=== PATIENT | male | born 1945 | race Caucasian/White ===

== ENCOUNTER 2017-12-24 14:19 | Emergency (ER) | payer MEDICARE, SELFPAY ==
[2017-12-24 14:20] VITALS: BP 129/68; PULSE 59; RESP 17; TEMP 36.8; O2SAT 93; BMI 25.8
--- NOTE | 2017-12-24 14:41 | CT_ITS ---
STUDY: CT BRAIN WITHOUT CONTRAST REASON FOR EXAM: Male, 72 years old. Syncope RADIATION DOSAGE (If Supplied By Facility): CTDIvol = ( 44.99 ) mGy, DLP = ( 829.85 ) mGycm TECHNIQUE: Transaxial CT imaging of the brain was performed without administration of intravenous contrast material. Individualized dose optimization techniques were used for this CT. COMPARISON: January 04, 2015 FINDINGS: Normal soft tissue structures. Normal calvarium. Normal size ventricles and extra-axial spaces for the patient's age. Stable white matter microangiopathic ischemic changes of the cerebral hemispheres. Normal basal ganglia and thalami. Normal brainstem. Normal cerebellum. There is no intracranial hemorrhage. 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 Right maxillary and sphenoid sinus mucosal thickening. CT/Brain/Head without Contrast IMPRESSION: Age-related and chronic changes of the brain. Electronically Signed: Chip Alonzo DO at 15:34 EDT Tel [phone], Service support ,
--- NOTE | 2017-12-24 14:41 | RAD_ITS ---
STUDY: X-RAY CHEST REASON FOR EXAM: Male, 72 years old. Syncopal episode TECHNIQUE: Frontal views COMPARISON: None. FINDINGS: The lungs are clear and expanded. There is no demonstrated pleural abnormality. Normal size heart. Normal mediastinum and philomena. Normal visualized pulmonary arteries. Normal visualized aortic arch and descending thoracic aorta. Degenerative changes of the thoracic spine. Normal visualized ribs, clavicles, and shoulders. There is no demonstrated abnormality of the visualized soft tissue structures of the upper abdomen. RAD/Chest 1 View (Portable) IMPRESSION: No acute pulmonary pathology of the chest. Electronically Signed: Chip Alonzo DO at 15:07 EDT Tel [phone], Service support ,
--- NOTE | 2017-12-24 14:41 | EKG12_ITS ---
Test Reason : SYNCOPE Blood Pressure : / mmHG Vent. Rate : 058 BPM Atrial Rate : 058 BPM P-R Int : 182 ms QRS Dur : 110 ms QT Int : 438 ms P-R-T Axes : 056 -59 048 degrees QTc Int : 429 ms Sinus bradycardia Left axis deviation Incomplete left bundle branch block Abnormal ECG Confirmed by CHARLETTE ALARCON, SANDRA ([id number]), assignment desk editor NENITA COLE ([id number]) on 12/29/2017 3:41:22 PM Referred By: MOR Confirmed By:SANDRA OVALLES MD
[2017-12-24] MEDS: 0.9% Normal Saline 1,000 ML 150 ML IV (14:44)
[2017-12-24 15:04] LABS: Absolute Lymphocyte Count 1.95 X10^3/ul (0.83-4.51); Absolute Neutrophil Count 6.4 X10^3/uL (2.0-7.7); Basophil# 0.02 X10^3/uL; Basophil% 0.2 % (0-1); Eosinophil# 0.11 X10^3/uL; Eosinophils% 1.2 % (0-5); Hematocrit 43.2 % (40-54); Hemoglobin 14.8 g/dl (13.0-16.5); Lymphocyte # 1.95 X10^3/ul (4.0); Lymphocyte % 20.9 % (19-41); Mean Corp Hgb Conc 34.3 g/gl (32-36); Mean Corpuscular Hgb 30.1 pg (27.0-32.0); Mean Corpuscular Volume 87.8 fL (80-94); Mean Platelet Vol. 10.2 fl (6.2-12.0); Monocyte% 8.6 % (0-10); Neutrophil # 6.42 X10^3/uL (2.7-7.7); Neutrophil % 68.8 % (47-70); POSITIVE COUNT NO; POSITIVE DIFFERENTIAL NO; POSITIVE MORPHOLOGY NO; Platelet Count 181 K/mm3 (150-450); RBC Distribution Width CV 13.9 % (11.6-14.6); Red Blood Count 4.92 M/mm3 (4.6-6.2); White Blood Count 9.3 K/mm3 (4.4-11.0)
[2017-12-24 15:20] LABS: Anion Gap 8 (5-15); BUN 13 mg/dL (7-18); BUN/Creat Ratio 14.8 RATIO (10-20); Calcium,Total 8.5 mg/dL (8.5-10.1); Chloride 109 mmol/L (98-107); Creatinine, Serum 0.88 mg/dL (0.70-1.30); EST Glomerular Filtration Rate 91 mL/min (>60); Est Glom Filt Rate - Afr Amer 110 mL/min (>60); Estimated Creatinine Clearance 82.06 ml/min; Glucose 101 mg/dL (74-106); Potassium 4.2 mmol/L (3.5-5.1); Sodium Level 145 mmol/L (136-145)
[2017-12-24 15:54] VITALS: BP 122/74; BP 123/72; BP 131/76; PULSE 59; PULSE 62; PULSE 70
--- NOTE | 2017-12-24 16:07 | ED.VISSUMM ---
- ER Visit Summary Date of Service: 12/24/17 Chief Complaint: [Syncope] History of Present Illness: The patient is a 72 M [presents the emergency department with complaint of syncopal episode prior to arrival emergency department. Patient states that he had finished cutting his grass and then he had some customers come by the purchase some dumbbells from him. He had gone down to the basement and remembers feeling dizzy and sweaty. Patient then had a syncopal episode however he was caught by the customer that was with him and laid on the ground therefore there was no injury from fall. Patient's symptoms lasted about a minute. No seizure activity was noted. Patient states that he had a syncopal episode about a year and a half ago but did not seek medical attention at that time. Patient states that he subsequently had a loop recorder placed after that syncopal episode. Patient has had episodes of dizziness for years and no etiology has been found for it. Patient denies recent illness. He denies chest pain. He denies shortness of breath. He denies recent travel or surgery.] Physical Examination: [HEENT-PERRLA, EOMI. Cranial nerves II through XII grossly intact. TMs clear. Mucous membranes moist. No adenopathy. Cardiovascular-regular rate and rhythm without murmur or ectopy Lungs-clear to auscultation, chest wall stable without crepitus or subcu emphysema Abdomen-normoactive bowel sounds, soft, nontender, no rebound or rigidity, no peritoneal signs. Neuro exam-figure the nose and heel to rojo testing within normal limits, negative Romberg, negative pronator drift, fundi benign Extremities-intact ?4, normal range of motion, normal pulses, atraumatic] Test Results: [EKG obtained showed a sinus rhythm with a ventricular rate of 58 bpm with an incomplete left bundle branch block. CBC with differential obtained was unremarkable. Chemistries unremarkable. Troponin was less than 0.015. CT scan of the brain without contrast showed nothing acute. Orthostatic vital signs were negative.] Emergency Department Course and Treatment: [] Treatment Plan: [I recommended admission for further workup and evaluation of his syncope. At this point it is unclear the etiology of syncope. Patient is refusing admission. Patient understands I cannot rule out a cardiac dysrhythmia or other cardiac etiology. Patient understands this and again is refusing admission. Patient would like to sign out AGAINST MEDICAL ADVICE. Patient's is with him as well and she understands my concerns as well. Patient understands he may return to the emergency department at any time with recurrent or worsening symptoms.] Disposition: [Signed out AGAINST MEDICAL ADVICE] Impression: Syncope-etiology uncertain] This note was generated with [employer] dictation software. It may contain incorrect words, spelling, and punctuation that were not noted in review of the chart prior to signing ED Disposition - Plan for ED Patient: Chief Complaint: Syncope [facility] [[facility] Provider] -
--- NOTE | 2017-12-24 16:14 | ED.DEP ---
ED Disposition - Plan for ED Patient: Chief Complaint: Syncope Instructions: ED Fainting Unkn Cause [facility]errals: [facility] [Primary Care Provider] - 3-5 Days
[2017-12-24 16:38] VITALS: BP 124/68; PULSE 71; RESP 18; O2SAT 97
== END 2017-12-24 16:40 | disposition left against medical advice (07) ==
LOC: ED 16:29
PROVIDERS: Emergency Provider Emergency Medicine
DX: R55 Syncope and collapse (principal); I44.7 Left bundle-branch block, unspecified; J44.9 Chronic obstructive pulmonary disease, unspecified; I10 Essential (primary) hypertension; G47.30 Sleep apnea, unspecified; K21.9 Gastro-esophageal reflux disease without esophagitis; Z79.82 Long term (current) use of aspirin; Z79.899 Other long term (current) drug therapy; Z95.5 Presence of coronary angioplasty implant and graft
CPT/HCPCS: 70450; 71045; 80048; 84484; 85025; 93005; 99285

== ENCOUNTER 2018-12-05 14:53 | Emergency (ER) | payer MEDICARE, SELFPAY ==
[2018-12-05 14:55] VITALS: BP 104/77; PULSE 77; RESP 18; TEMP 36.7; O2SAT 93; BMI 25.2
--- NOTE | 2018-12-05 15:06 | RAD_ITS ---
STUDY: X-RAY CHEST REASON FOR EXAM: Male, 73 years old. Shortness of breath and cough for over a week TECHNIQUE: PA and lateral views of the chest. COMPARISON: 12/24/2017 FINDINGS: EKG leads project over the chest. Reticular opacity and bronchiectasis of the right middle lobe is the most prior study, although best seen on lateral imaging. Localized hyperlucency in the right costophrenic angle is stable and may represent emphysematous bleb. There is no demonstrated pleural abnormality. Normal size heart. Normal mediastinum and philomena. Normal visualized pulmonary arteries. Normal visualized aortic arch and descending thoracic aorta. No acute bony process. There is no demonstrated abnormality of the visualized soft tissue structures of the upper abdomen. RAD/Chest PA and Lateral IMPRESSION: 1. No airspace consolidation or pleural effusion. 2. Emphysematous hyperinflation or bleb of the right costophrenic angle, stable. 3. Bronchiectasis and peribronchial fibrosis of the right middle lobe, stable. Electronically Signed: Oneal Martinez MD at 16:00 EDT , Service support ,
--- NOTE | 2018-12-05 15:09 | ED.VISSUMM ---
- ER Visit Summary Date of Service: 12/05/18 Chief Complaint: Short of breath and cough History of Present Illness: The patient is a 73 M with history of COPD and obstructive sleep apnea. He wears oxygen as needed at home. He has had cough and congestion for the past 7 to 10 days. He occasionally brings up hazy mucus. He had chills one night but no evidence of fever. He now has chest pain only with cough. [facility] Physical Examination: Vital signs unremarkable. Pulse ox is 93% on room air. Patient lying in bed no acute distress. He speaking full sentences. Head and neck examination is unremarkable. Heart is regular rate and rhythm. Lung sounds with mild rales at the right base. He has mild decreased air movement throughout. Abdomen is soft nontender. Test Results: EKG is sinus at 70 with no acute ischemia. Two-view chest x-ray shows no airspace consolidation. Emphysematous hyperinflation or bleb is noted to the right costophrenic angle. Fibrosis is noted in the right middle lobe. Emergency Department Course and Treatment: Patient was given a DuoNeb treatment here along with prednisone. On repeat evaluation he does feel improved. He will be given prescription for prednisone at home as well as Zithromax. Treatment Plan: [] Disposition: Discharge Impression: COPD exacerbation This note was generated with [employer] dictation software. It may contain incorrect words, spelling, and punctuation that were not noted in review of the chart prior to signing ED Disposition - Plan for ED Patient: Disposition: Home or Assisted Living Instructions: ED COPD Flare Prescriptions: Azithromycin [Zithromax] 250 mg PO DAILY #4 tablet Prednisone [Deltasone] 40 mg PO DAILY #10 tablet [facility]errals[facility] [Primary Care Provider] - 1-2 Weeks
[2018-12-05] MEDS: predniSONE 20 MG Tablet 40 MG PO (15:10)
--- NOTE | 2018-12-05 15:16 | EKG12_ITS ---
Test Reason : CP WHEN COUGHING Blood Pressure : / mmHG Vent. Rate : 070 BPM Atrial Rate : 070 BPM P-R Int : 176 ms QRS Dur : 106 ms QT Int : 404 ms P-R-T Axes : 048 -60 048 degrees QTc Int : 436 ms Normal sinus rhythm Left axis deviation Inferior infarct , age undetermined Abnormal ECG Confirmed by CHARLETTE ALARCNO, SANDRA ([id number]), research editor ADELAIDE PARKS ([id number]) on 12/08/2018 9:30:41 AM Referred By: JUSTINO Confirmed By:SANDRA OVALLES MD
[2018-12-05 15:19] VITALS: PULSE 72; RESP 18
[2018-12-05] MEDS: Ipratropium/Albuterol Sulfate 3 ML AMPUL.NEB INHALATION (15:19)
[2018-12-05 16:16] VITALS: PULSE 75; RESP 19; O2SAT 92
[2018-12-05] MEDS: Azithromycin 250 MG Tablet 500 MG PO (16:17)
--- NOTE | 2018-12-05 16:21 | ED.RN ---
RESP THERAPY TO EDUCATE ON CLEANING CPAP MACHINE. PT AND REQUESTING.
== END 2018-12-05 16:22 | disposition home or self-care (01) ==
PROVIDERS: Emergency Provider Emergency Medicine
DX: J44.1 Chronic obstructive pulmonary disease with (acute) exacerbation (principal); G47.33 Obstructive sleep apnea (adult) (pediatric); J84.10 Pulmonary fibrosis, unspecified; I25.2 Old myocardial infarction; I10 Essential (primary) hypertension; Z87.891 Personal history of nicotine dependence; Z95.5 Presence of coronary angioplasty implant and graft; Z79.82 Long term (current) use of aspirin; Z79.899 Other long term (current) drug therapy
CPT/HCPCS: 71046; 93005; 94640; 99283

== ENCOUNTER 2019-03-05 11:13 | Observation (INO) | payer MEDICARE, SELFPAY ==
[2019-03-05] VITALS (8 sets, daily range): BP systolic 139–159; BP diastolic 76–79; PULSE 58–71; RESP 16–19; TEMP 36.1–36.9; O2SAT 93–99; BMI 25.9; BMI 25.0
--- NOTE | 2019-03-05 11:33 | EKG12_ITS ---
Test Reason : Blood Pressure : / mmHG Vent. Rate : 057 BPM Atrial Rate : 057 BPM P-R Int : 204 ms QRS Dur : 112 ms QT Int : 434 ms P-R-T Axes : 055 -57 051 degrees QTc Int : 422 ms Sinus bradycardia Left anterior fascicular block Cannot rule out Inferior infarct (masked by fascicular block?), age undetermined Abnormal ECG Confirmed by CARMINE ALARCON, KADY ([id number]), reimbursement counselor NENITA COLE ([id number]) on 03/09/2019 11:59:11 AM Referred By: Bartolome Hernandez Confirmed By:DUSTIN LOU MD
--- NOTE | 2019-03-05 11:33 | CT_ITS ---
STUDY: CT BRAIN WITHOUT CONTRAST REASON FOR EXAM: Male, 73 years old. Right-handed weakness. Hypertension. RADIATION DOSAGE (If Supplied By Facility): CTDIvol = ( 44.99 ) mGy, DLP = ( 829.85 ) mGycm TECHNIQUE: Transaxial CT imaging of the brain was performed without administration of intravenous contrast material. Individualized dose optimization techniques were used for this CT. COMPARISON: Comparison is made with prior study dated December 24, 2017. FINDINGS: Normal soft tissue structures. Normal calvarium. There is mild cerebral atrophy with widening of the extra-axial spaces and ventricular dilatation. There are areas of decreased attenuation within the white matter tracts of the supratentorial brain, consistent with microvascular disease changes. Focal encephalomalacia in the posterior inferior aspect of the right occipital lobe. This is new as compared to prior study and represents subacute infarct. Normal basal ganglia and thalami. Normal brainstem. Normal cerebellum. There is no intracranial hemorrhage. There are no findings of an acute ischemic infarction. Atherosclerotic calcification of the vertebral arteries and cavernous portions of the internal carotid arteries bilaterally. Opacification of the right sphenoid sinus. CT/Brain/Head without Contrast IMPRESSION: Chronic involutional changes of the brain. Electronically Signed: Angel Charles, at 13:39 EDT , Service support ,
[2019-03-05 11:52] LABS: Absolute Lymphocyte Count 2.26 X10^3/uL (0.83-4.51); Absolute Neutrophil Count 4.4 X10^3/uL (2.0-7.7); Basophil# 0.05 X10^3/uL; Basophil% 0.7 % (0-1); Eosinophil# 0.15 X10^3/uL; Hematocrit 44.6 % (40-54); Hemoglobin 15.2 g/dL (13.0-16.5); Lymphocyte # 2.26 X10^3/ul (4.0); Lymphocyte % 29.4 % (19-41); Mean Corp Hgb Conc 34.1 g/dL (32-36); Mean Corpuscular Hgb 30.2 pg (27.0-32.0); Mean Corpuscular Volume 88.5 fL (80-94); Mean Platelet Vol. 9.9 fl (6.2-12.0); Monocyte% 10.4 % (0-10); NRBC Flagged by Analyzer 0 % (0-5); Neutrophil % 57.2 % (47-70); Platelet Count 177 K/mm3 (150-450); RBC Distribution Width CV 13.6 % (11.6-14.6); RBC Distribution Width SD 43.9 fl (35.1-43.9); Red Blood Count 5.04 M/mm3 (4.6-6.2); White Blood Count 7.7 K/mm3 (4.4-11.0)
[2019-03-05 12:18] LABS: Anion Gap 4 (5-15); BUN 8 mg/dL (7-18); BUN/Creat Ratio 10.6 RATIO (10-20); Calcium,Total 9.1 mg/dL (8.5-10.1); Chloride 109 mmol/L (98-107); Creatinine, Serum 0.76 mg/dL (0.70-1.30); EST Glomerular Filtration Rate 107 mL/min (>60); Est Glom Filt Rate - Afr Amer 130 mL/min (>60); Estimated Creatinine Clearance 71.13 ml/min; Glucose 95 mg/dL (74-106); Potassium 3.9 mmol/L (3.5-5.1); Sodium Level 139 mmol/L (136-145)
[2019-03-05 12:19] LABS: Partial Thromboplast Time 29.4 Seconds (24.1-36.2)
--- NOTE | 2019-03-05 12:48 | ED.DCSUM_ITS ---
History of Present Illness Informant: Patient, Significant Other Onset: Today - Started at midnight last night Context: Gradual Onset Timing: Continuous Quality and Location: Right Arm Weakness - Right hand weakness, which she describes as difficulty with fine motor functioning Onset: Gradual Current Severity: Severe Maximum Severity: Severe Worsened by: Use of right hand Relieved by: Nothing Associated Symptoms: Negative for: Headache, Nausea, Vomiting, Chest Pain Narrative: 73-year-old male history of coronary artery disease, he was admitted with TIA, presents with nearly 12 hours of difficulty using his right hand which she describes as difficulty with fine motor functioning. He is not having weakness, he is not dropping anything however he just feels clumsy with his right hand. He feels like he is not able to use his coffee mug normally, he was able to drink however he was still able to adjust felt more difficult than normal. He is not having any pain. He has no numbness or tingling. He does not have any other symptoms of weakness, he denies to have any other paresthesias, or numbness, he does not have any headache or neck pain or visual changes or difficulty with speech or ambulation. He is not on blood thinners. He denies chest pain or shortness of breath. No back pain. Rest of review of systems negative. Prior similar symptoms: No Recent Illness/Hospitalization: No <Teddy Watson - Last Filed: 03/05/19 16:07> <Blade Archer - Last Filed: 03/06/19 07:01> Chief Complaint: Numb/Ting Past Medical History Prior records reviewed: Yes Past Medical History: - Smoking Status: Former smoker <Teddy Watson - Last Filed: 03/05/19 16:07> - Family History Maternal Family History: Reports: - - Denies known maternal medical history including cardiac history. Paternal Family History: Reports: - - Denies known paternal medical history including cardiac history. <Blade Archer - Last Filed: 03/06/19 07:01> - Allergies and Home Meds Allergies/Adverse Reactions: Allergies No Known Allergies Allergy (Verified 12/05/18 14:57) Review of Systems All systems negative except as indicated Neurological: Reports: Weakness <Teddy Watson - Last Filed: 03/05/19 16:07> STROKE Vital Signs/Narrative: Vital Signs Temp Pulse Resp BP Pulse Ox 03/05/19 11:13 96.9 F L 62 19 H 159/79 H 99 Inital Vital Signs reviewed: Yes General: Well nourished, Well developed Head: Normocephalic, Atraumatic Eyes: Perrl, EOMI ENT: Moist mucous membranes Neck: Supple, Nontender Cardiovascular: Regular rate, Regular rhythm, No murmurs Respiratory: No distress, CTA bilaterally, Chest nontender Abdomen: Soft, Nontender, Nondistended, Normal bowel sounds, No masses Back: Nontender, Normal Inspection Extremities: Nontender, No edema Skin: Normal color, No rash Neurological: Alert, Oriented x3, Cranial nerves II-XII grossly intact, Normal Strength, Normal Sensation, Normal Gait Psychological: Normal affect <Teddy Watson - Last Filed: 03/05/19 16:07> Diagnostic/Tx/Re-eval CT brain was unremarkable for acute findings - Rhythm Strip Rhythm Strip: Sinus Rhythm Ectopy: None - EKG Initial EKG Interpretation: Sinus Rhythm, No Acute Injury Pattern - Medical Decision Making Stroke Team Activated: No EKG was unremarkable. NIH stroke scale was 0. CT brain unremarkable as were laboratory work-up. Patient is having abnormal movements weakness and difficulty with coordination of his right hand. Concern for neurological cause. Does not appear to be a peripheral nerve issue. He does not have any weakness or numbness within his single nerve distribution. At this time we will admit f or stroke work-up. I spoke with the hospitalist who agreed to admit <Teddy Watson - Last Filed: 03/05/19 16:07> - Medical Decision Making Saw the patient independent from the physician assistant grocery store manager. He had sudden and transient weakness and incoordination of his right hand. At one point, he walked into the wall, but because he did not feel it was part of his body. He had recurrent symptoms this morning. He has a history of TIA. His NIH is 0. Exam unremarkable except for some bruising to his hand. Stroke work-up was unremarkable. I am concerned for lacunar infarct, internal capsule infarct or TIA. Hospitalist was contacted to admit for further evaluation. <Blade Archer - Last Filed: 03/06/19 07:01> ED Disposition <Teddy Watson - Last Filed: 03/05/19 16:07> <Blade Archer - Last Filed: 03/06/19 07:01> - Plan for ED Patient: Disposition: Acute Care Hospital [facility] Diagnosis: Right hand weakness
--- NOTE | 2019-03-05 16:28 | HP.PCM_ITS ---
<Becki English - Last Filed: 03/05/19 17:22> Problem List (1) HTN (hypertension) Status: Chronic (2) COPD (chronic obstructive pulmonary disease) Status: Chronic (3) HLD (hyperlipidemia) Status: Chronic (4) GERD (gastroesophageal reflux disease) Status: Chronic (5) Right hand weakness Status: Acute History of Present Illness Date of Admission: 03/05/19 Chief Complaint: Right hand weakness. The patient is a 73 year old M who presents emergency room due to right hand weakness. Patient reports at 12:15 AM he went to let out his dog and when he picked up a dog treats he dropped it and his hand felt weak. He then states he went to bed and woke up this morning and had difficulty holding brush while brushing his hair. He reports he has normal strength of his right hand. Denies hand or wrist pain. Denies numbness, tingling. Denies other neurologic symptoms or focal deficits. He denies history of carpal tunnel syndrome, injury or other orthopedic issues. He has a past medical history of CAD with history of stents, hypertension, hyperlipidemia, COPD, GERD, former tobacco use. Past Medical History Past Medical History (Chronic Problems): Chronic Problems HTN (hypertension) (Chronic) COPD (chronic obstructive pulmonary disease) (Chronic) HLD (hyperlipidemia) (Chronic) GERD (gastroesophageal reflux disease) (Chronic) Allergies No Known Allergies Allergy (Verified 12/05/18 14:57) Home Medications: Ambulatory Orders Medication Instructions Recorded Albuterol Inhaler [Ventolin Hfa] 2 puff INHALATION Q4H PRN PRN 12/24/17 Amlodipine Besylate [Norvasc] 5 mg PO DAILY 12/24/17 Budesonide/Formoterol 160/4.5 2 puff IH BID 12/24/17 [Symbicort 160/4.5 Mcg Inhaler (SP)] Carvedilol [Coreg] 37.5 mg PO BID 12/24/17 Fish Oil/Dha/Epa [Fish Oil 1,200 1,200 mg PO DAILY 12/24/17 mg Fish Oil] Fluticasone 0.05% [Flonase Nasal 2 spray NASAL PRN PRN 12/24/17 [place]] Guaifenesin [Chest Congestion 400 mg PO Q4H PRN PRN 12/24/17 Relief] Lisinopril [Zestril] 10 mg PO DAILY 12/24/17 Multivit-Min/FA/Lycopen/Lutein 1 each PO DAILY 12/24/17 [Abc Plus Tablet] Tiotropium [place] [Spiriva 18 MCG] 2 puff INHALATION DAILY 12/24/17 Rosuvastatin Calcium 20 mg PO DAILY 12/05/18 Albuterol Aerosols [Ventolin 2.5 mg INHALATION Q6HWA.RT 03/05/19 Aerosols] Alendronate Sodium [Fosamax] 70 mg PO VILLANUEVA 03/05/19 Aspirin E.C. [Ecotrin] 81 mg PO DAILY@0800 03/05/19 Cholecalciferol (Vitamin D3) 2,000 unit PO DAILY 03/05/19 [D3-2000] Cyanocobalamin (Vitamin B-12) 1,000 mcg PO DAILY 03/05/19 [B-12] Loratadine 10 mg PO QHS 03/05/19 Omeprazole 20 mg PO DAILY 03/05/19 Clopidogrel Bisulfate [Plavix] 75 mg PO DAILY #30 tab 03/06/19 Surgical History: - - Cardiac stents, hernia repair x3 Psychiatric History: No pertinent psych hx Lives: Spouse/ Significant Other Smoking Status: Former smoker Tobacco Use: Cigarettes Alcohol: None Drugs: None - *Family History Maternal History Items: - - Denies known maternal medical history including cardiac history. Paternal History Items: - - Denies known paternal medical history including cardiac history. Review of Systems Constitutional: Denies: Chills, Fever, Weight Change HEENT: Denies: Head Aches, Sinus Congestion, Sinus Drainage Cardiovascular: Denies: Chest Pain, Palpitations Respiratory: Denies: Cough, Shortness of breath at rest, Sputum production Gastrointestinal: Denies: Abdominal Pain, Nausea, Vomiting Genitourinary: Denies: Dysuria Musculoskeletal: Denies: Joint Pain, Joint Tenderness Skin: Denies: Rash, Wounds Neurological: Reports: - - Right hand clumsiness.. Denies: Double vision, Slurred speech, Confusion, Focal weakness, Numbness, Tingling Psychiatric: Denies: Anxiety, Depression, Homicidal Ideations, Suicidal Ideations Hematologic/ Lymphatic: Denies: Easy Bruising, Easy Bleeding VTE Information - Inpt Only VTE Present on Admission: No VTE Mechan Device Prophylaxis: None VTE Pharm Prophylaxis ordered?: Yes - Physical Exam General: Alert, Oriented x3, Cooperative HEENT: Atraumatic, PERRLA, EOMI, Normocephalic Neck: Supple, No JVD, Negative Carotid Bruits Lungs: Clear to auscultation, Normal air movement Cardiovascular: Regular rate, Regular Rhythm, Normal S1, Normal S2, No murmurs Abdomen: Bowel Sounds Present, Soft, Non Tender, Non-Distended Extremities: No clubbing, No cyanosis, No edema, Capillary Refill Less than 3 Seconds Skin: No rashes, No breakdown Musculoskeletal: No Tenderness to Palpation of Joints or Extremities Neurological: Cranial nerves II-XII grossly intact, Neuro grossly intact Psych/Mental Status: Normal Affect, Appropriate Vital Signs Temp Pulse Resp BP Pulse Ox 96.9 F L 62 19 H 159/79 H 99 03/05/19 11:13 03/05/19 11:13 03/05/19 11:13 03/05/19 11:13 03/05/19 11:13 Weight: 191 lb 2.252 oz Body Mass Index (BMI) 25.9 Laboratory Tests Past 24 Hrs 03/05/19 03/05/19 03/05/19 11:45 11:45 11:45 WBC 7.7 RBC 5.04 Hgb 15.2 Hct 44.6 MCV 88.5 MCH 30.2 MCHC 34.1 RDW Std Deviation 43.9 RDW Coeff of Min 13.6 Plt Count 177 MPV 9.9 Immature Gran % (Auto) 0.300 Neut % (Auto) 57.2 Lymph % (Auto) 29.4 [place] % (Auto) 10.4 H Eos % (Auto) 2.0 Baso % (Auto) 0.7 Absolute Neuts (auto) 4.4 Absolute Lymphs (auto) 2.26 Nucleated RBC % 0 PT 13.0 INR 1.0 APTT 29.4 Sodium 139 Potassium 3.9 Chloride 109 H Carbon Dioxide 26.0 Anion Gap 4 L BUN 8 Creatinine 0.76 Estim Creat Clear Calc 71.13 Est GFR (MDRD) Af Amer 130 Est GFR (MDRD) Non-Af 107 BUN/Creatinine Ratio 10.6 Glucose 95 Calcium 9.1 Troponin I 0.024 Assessment/Plan All Active Problems Right hand weakness (Acute) 1. Right hand weakness, rule out CVA- possible carpal tunnel or other Ortho etiology/nerve impingement. Obtain MRI of brain, cervical spine MRI. Further neuro evaluation pending MRI of brain. PT/OT/ST. Aspirin, statin. Lipid panel in a.m. 2. CAD with history of stents-continue aspirin, statin, beta-juan david. 3. Hypertension-hold BP regimen pending MRI. Patient on amlodipine, carvedilol, lisinopril. 4. Hyperlipidemia- continue statin. FLP in a.m. 5. COPD- no exacerbation, continue home aerosol regimen. 6. GERD- Continue PPI. DVT prophylaxis-Lovenox sc This patient was seen by BIANCA Gupta under the supervision of Dr. Hernandez. <Bartolome Hernandez - Last Filed: 03/06/19 21:00> History of Present Illness The patient is a 73 year old M with previous history of TIA although patient does not remember but was told by PCP came to ER with right hand weakness. As per the patient, his right hand felt like clumsy not able to write or do fine motor work or make a good fist. He denies any numbness or tingling. Denies other neurological symptoms. No chest pain, shortness of breath or arrhythmia.] Past Medical History Allergies No Known Allergies Allergy (Verified 12/05/18 14:57) - Physical Exam General: Alert, Oriented x3, Cooperative HEENT: Atraumatic, PERRLA, EOMI, Normocephalic Neck: Supple, No JVD, Negative Carotid Bruits Lungs: Clear to auscultation, Normal air movement, No rhonchi, No wheeze, No rales Cardiovascular: Regular rate, Regular Rhythm, Normal S1, Normal S2, No murmurs Abdomen: Bowel Sounds Present, Soft, Non Tender, Non-Distended Extremities: No edema, Capillary Refill Less than 3 Seconds Skin: No rashes, No breakdown Musculoskeletal: No Tenderness to Palpation of Joints or Extremities, Arthritic Changes, - - Tinel sign positive palpation of right median nerve. Phalen's sign negative Neurological: Cranial nerves II-XII grossly intact, Deep Tendon Reflexes 2+/4 and Symmetrical, Neuro grossly intact, Motor Exam 5/5 strength throughout, Sensory exam intact to light touch and pain, - - Sensation on both side of hand is equal. Psych/Mental Status: Normal Affect, Appropriate Vital Signs Temp Pulse Resp BP Pulse Ox 98.0 F 62 12 137/71 H 93 09/14/19 09:15 03/06/19 09:15 03/06/19 09:15 03/06/19 09:15 03/06/19 09:15 Oxygen Flow Rate (L/min) 1 Oxygen Delivery Method Room Air Weight: 184 lb 8.43 oz Body Mass Index (BMI) 25.0 Intake and Output for Last 24 Hours 03/04/19 03/05/19 03/06/19 23:59 23:59 23:59 Intake Total 1100 / 1100 1360 / 1360 Balance 1100 / 1100 1360 / 1360 Laboratory Tests Past 24 Hrs 03/06/19 06:45 Triglycerides 190 Cholesterol 118 LDL Cholesterol 41 VLDL Cholesterol 38 HDL Cholesterol 39 L Assessment/Plan This patient was seen in conjunction with INTERIOR DESIGNERBecki. I have independently interviewed and examined the patient and reviewed pertinent history, examination findings, laboratory and plan of management. I have reviewed the note and agree with the documented findings with the few additional points. In brief, patient is admitted for right hand clumsy action and unable to do fine motor work. There is suspicion of carpal tunnel syndrome but patient was admitted for MRI brain to rule out a stroke. Cervical spine MRI also ordered. If MRI brain is positive we will do further stroke work-up. Started on aspirin and statin. Fasting profile exam. Rest of his comorbidities including coronary artery disease status post stents, hypertension and dyslipidemia, COPD and coronary stable. I have discussed my assessment with Becki VITALE and orders have been reviewed. Code Visit OBSV E&M: 90428 Initial observation care L2
--- NOTE | 2019-03-05 16:28 | MRI_ITS ---
We are attempting to reach an attending provider to discuss findings. An addendum with communication details will be sent when the communication is complete. STUDY: MRI BRAIN WITHOUT CONTRAST REASON FOR EXAM: Male, 73 years old. Right hand clumsiness since midnight last night. History of prior stroke. TECHNIQUE: Standardized multiplanar fat and water weighted pulse sequences were obtained. COMPARISON: CT head 03/05/2019. FINDINGS: There is a small area of restricted diffusion in the left posterior frontal lobe consistent with an acute infarct. Chronic right frontal and right occipital infarcts. No intracranial mass, mass effect, or midline shift. No hemorrhage. There is mild cerebral atrophy with widening of the extra-axial spaces and ventricular dilatation. There are multiple white matter hyperintensities, distributed throughout the deep white matter tracts of the cerebral hemispheres, consistent with moderate chronic white matter ischemic changes. There is no extra-axial fluid accumulation. Normal flow voids within the major intracranial circulation suggesting patency by spin echo criteria. Normal sella turcica, pituitary gland, infundibular stalk, optic chiasm and hypothalamus. Normal basal cisterns. Normal bilateral temporal bones. Mucosal thickening in the right sphenoid sinus. Normal calvarium and skull base. Normal visualized soft tissue structures. MRI/Brain without Contrast IMPRESSION: 1. Small acute left posterior frontal infarct. 2. Chronic right frontal and right occipital infarcts. 3. Moderately extensive microvascular ischemic changes. 4. Mild chronic sinusitis. Electronically Signed: Francoise Delgado MD at 20:12 EDT Tel , Service support ,
--- NOTE | 2019-03-05 16:40 | MRI_ITS ---
STUDY: MRI CERVICAL SPINE WITHOUT CONTRAST REASON FOR EXAM: Male, 73 years old. Right hand discoordination since midnight. TECHNIQUE: Standardized fat and water weighted pulse sequences were obtained in the sagittal and axial planes. COMPARISON: None FINDINGS: Normal foramen magnum and brainstem-cervical cord junction. Normal craniovertebral junction. Normal anterior atlantoaxial articulation. Normal odontoid process. Normal cervical lordosis. Normal vertebral bodies and posterior osseous elements. C2-3: Normal endplates. Normal disc height, signal and morphology. Normal central canal. Moderate to severe left foraminal stenosis due to uncinate hypertrophy. C3-4: Normal endplates. Normal disc height, signal and morphology. Normal central canal. Moderate to severe foraminal stenosis, greater on the left, due to uncinate and left facet hypertrophy. C4-5: Mild disc space narrowing. Left facet fusion. Moderate left foraminal stenosis due to uncinate and facet hypertrophy. C5-6: Marked disc space narrowing. 3 mm retrolisthesis. Mild spondylotic bar with minimal cord flattening and borderline canal stenosis. Severe bilateral foraminal stenosis due to uncinate hypertrophy. C6-7: Normal endplates. Normal disc space height, signal, and morphology. Normal central canal. Moderate foraminal stenosis due to facet hypertrophy. C7-T1: Normal endplates. Normal disc height, signal and morphology. 2 mm anterolisthesis. Normal central canal and intervertebral neural foramina. Normal cervical cord. Normal visualized soft tissue structures. MRI/Spine Cervical (Routine) IMPRESSION: 1. C5-6 retrolisthesis, mild cord flattening and borderline canal stenosis. 2. Moderate to severe foraminal stenosis from C2-3 through C6-7. Electronically Signed: Francoise Delgado MD at 20:22 EDT Tel , Service support ,
[2019-03-05 17:49] LABS: Thyroid Stim Hormone (TSH) 2.45 uIU/mL (0.358-3.74)
[2019-03-05] MEDS: Albuterol 2.5 MG/3 ML VIAL.NEB. INHALATION (20:02)
--- NOTE | 2019-03-05 20:39 | CT_ITS ---
STUDY: CTA HEAD AND NECK WITH CONTRAST REASON FOR EXAM: Male, 73 years old. Acute CVA. Left posterior frontal infarct. RADIATION DOSAGE (If Supplied By Facility): CTDIvol = ( 26.49 ) mGy, DLP = ( 806.89 ) mGycm TECHNIQUE: CT angiography was performed with a multi-detector CT scanner. Data acquisition was obtained from the skull base through the vertex following intravenous administration of 100ML IV Isovue 370. MIP images were reconstructed from the axial data set. Post-processing of the angiographic images was performed, with multiplanar reformation and 3D reconstruction. Individualized dose optimization techniques were used for this CT. COMPARISON: No relevant priors. FINDINGS: CTA HEAD: Normal bilateral petrous and cavernous carotid arteries. Normal anterior cerebral arteries. Anterior communicating artery is not visualized. Unremarkable middle cerebral arteries bilaterally. No aneurysm, dissection, high-grade stenosis or occlusion. Nonvisualized posterior communicating arteries. Normal bilateral vertebral arteries. Normal basilar artery with a normal basilar bifurcation. Unremarkable posterior cerebral arteries. AORTIC ARCH: Normal visualized aortic arch. Mild atherosclerotic calcification at the origin of the left subclavian artery. No stenosis. Origins of the brachiocephalic and left common carotid arteries are unremarkable. RIGHT CAROTID ARTERIES: Normal right common carotid artery (CCA). Normal right common carotid bulb. Normal origin of the right internal carotid (ICA) artery without a hemodynamically significant stenosis. Normal visualized cervical portion of the right internal carotid artery. Normal origin of the right external carotid artery (ECA). LEFT CAROTID ARTERIES: Normal left common carotid artery (CCA). Normal left common carotid bulb. Normal origin of the left internal carotid (ICA) artery without a hemodynamically significant stenosis. Normal visualized cervical portion of the left internal carotid artery. Normal origin of the left external carotid artery (ECA). VERTEBRAL ARTERIES: Normal bilateral vertebral arteries. No dissection, stenosis, or occlusion. Moderately extensive emphysema in the upper lobes bilaterally. Opacification of the right sphenoid sinus. CT/CTA Head AND Neck W/ Contrast IMPRESSION: 1. Unremarkable CTA head and neck. No high-grade stenosis or occlusion. 2. COPD. 3. Chronic sphenoid sinusitis. Electronically Signed: Francoise Delgado MD at 21:46 EDT Tel , Service support ,
--- NOTE | 2019-03-05 20:40 | ECHOD_ITS ---
Reason For Study: TIA/CVA Procedure This was a 2D Doppler, Color Flow transthoracic echocardiogram. Exam performed portable in patient room. Left Ventricle Normal size and thickness. The estimated ejection fraction is 50 %. No evidence for diastolic dysfunction. No regional wall motion abnormalities noted. Right Ventricle Normal RV size. Normal systolic function. Atria Normal left atrium. Normal right atrium. No doppler evidence for ASD. Mitral Valve There is no mitral valve stenosis. Trivial mitral valve insufficiency. Tricuspid Valve There is no tricuspid stenosis. Trivial tricuspid valve insufficiency. Normal pulmonary artery pressure. Aortic Valve Trisinus/trileaflet aortic valve. There is no aortic stenosis. No aortic valve insufficiency. Pulmonic Valve There is no pulmonic valvular stenosis. No pulmonic valve insufficiency. Great Vessels Normal aortic root. Pericardium/Pleural No pericardial effusion. Medication Performed a rapid injection of agitated mix of 9 cc saline and 1cc air to assess for atrial septal defect. MMode/2D Measurements & Calculations LVIDd: 5.1 cm IVSd: 0.96 cm Ao root diam: 3.5 cm LVIDs: 3.7 cm LVPWd: 1.0 cm RVDd: 4.2 cm FS: 28.3 % LAV(MOD-bp): 60.0 ml LVAd ap4: 33.3 cm2 SV(MOD-sp4): 49.3 ml LAV(MOD-bp) Indexed: 28.7 ml/m2 EDV(MOD-sp4): 113.3 ml LAV(MOD-sp2): 59.7 ml EDV(sp4-el): 115.5 ml LAV(MOD-sp4): 53.4 ml LVAs ap4: 23.3 cm2 ESV(MOD-sp4): 64.0 ml ESV(sp4-el): 63.3 ml EF(MOD-sp4): 43.5 % EF(sp4-el): 45.2 % SV(sp4-el): 52.2 ml LA A4 area: 19.7 cm2 LA dimension(2D): 4.0 cm RA A4 area: 17.9 cm2 Doppler Measurements & Calculations MV E max lemuel: 66.1 cm/sec Lat Peak E' Lemuel: 7.9 cm/sec Med Peak E' Lemuel: 5.6 cm/sec MV A max lemuel: 75.5 cm/sec E/E' lat: 8.3 E/E' med: 11.8 MV E/A: 0.88 Ao V2 max: 148.8 cm/sec LV V1 max: 82.3 cm/sec PA V2 max: 69.6 cm/sec Ao max P.9 mmHg LV V1 max P.7 mmHg Ao V2 mean: 92.8 cm/sec Ao mean P.0 mmHg Ao V2 VTI: 30.6 cm TR max lemuel: 265.8 cm/sec TR max P.3 mmHg Interpretation Summary The estimated ejection fraction is 50 %. No evidence for diastolic dysfunction. Trivial mitral valve insufficiency. Ordering Physician: Nisha Loza Referring Physician: [facility] Performed By: Monika Laughlin, FRANCIS, RVT
--- NOTE | 2019-03-05 20:41 | PCM.HOSP.N ---
Hospitalist Note Called per radiologist with report of MRI brain with small acute left posterior frontal infarct, chronic right frontal and right occipital infarcts with moderately extensive microvascular ischemic changes and mild chronic sinusitis. Will hold patient BP regimen for permissive hypertension. Added neurology consultation. Request echo additionally. All other acute stroke evaluation parameters in place.
[2019-03-05] MEDS: 0.9% Normal Saline 1,000 ML 999 ML IV (21:31)
[2019-03-05] MEDS: Atorvastatin Calcium 80 MG Tablet PO (21:33)
[2019-03-05] MEDS: Loratadine 10 MG Tablet PO (21:33)
[2019-03-05] MEDS: 0.9% Normal Saline 1,000 ML 100 ML IV (22:42)
[2019-03-06 01:18] VITALS: BP 135/69; PULSE 69; RESP 18; TEMP 37; O2SAT 96
[2019-03-06 02:07] VITALS: BMI 25.0
[2019-03-06 03:00] VITALS: PULSE 65
[2019-03-06 05:18] VITALS: BP 118/61; PULSE 61; RESP 18; TEMP 36.3; O2SAT 96
[2019-03-06 07:00] VITALS: PULSE 61
[2019-03-06 07:15] VITALS: PULSE 61; RESP 16; O2SAT 96
[2019-03-06] MEDS: Albuterol 2.5 MG/3 ML VIAL.NEB. INHALATION (07:15)
[2019-03-06 07:35] LABS: Cholesterol 118 mg/dL (200); High Density Lipoprotein 39 mg/dL; Triglycerides 190 mg/dL; Very Low Density Lipoprotein 38 mg/dL (5-40)
[2019-03-06 09:15] VITALS: BP 137/71; PULSE 62; RESP 12; TEMP 36.7; O2SAT 93
[2019-03-06] MEDS: Clopidogrel Bisulfate 75 MG Tablet PO (10:15)
[2019-03-06 10:24] VITALS: BMI 25.0
--- NOTE | 2019-03-06 11:50 | DCINST_ITS ---
- Discharge Diagnoses Current Active Problems: Current Active and Chronic Problems Right hand weakness (Acute) HTN (hypertension) (Chronic) COPD (chronic obstructive pulmonary disease) (Chronic) HLD (hyperlipidemia) (Chronic) GERD (gastroesophageal reflux disease) (Chronic) You will use the following diet at home:: Cardiac Discharge Activity: Return to Normal Activity Call your doctor if you observe: Numbness or Tingling, Shortness of breath, Dizziness, Fainting spells, Chest pain Allergies/Adverse Reactions: Allergies No Known Allergies Allergy (Verified 12/05/18 14:57) Medications to take at Discharge Albuterol Inhaler [Ventolin Hfa] 2 puff INHALATION Q4H PRN PRN 12/24/17 Amlodipine Besylate [Norvasc] 5 mg PO DAILY 12/24/17 Budesonide/Formoterol 160/4.5 [Symbicort 160/4.5 Mcg Inhaler (SP)] 2 puff IH BID 12/24/17 Carvedilol [Coreg] 37.5 mg PO BID 12/24/17 Fish Oil/Dha/Epa [Fish Oil 1,200 mg Fish Oil] 1,200 mg PO DAILY 12/24/17 Fluticasone 0.05% [Flonase Nasal [place]] 2 spray NASAL PRN PRN 12/24/17 Guaifenesin [Chest Congestion Relief] 400 mg PO Q4H PRN PRN 12/24/17 Lisinopril [Zestril] 10 mg PO DAILY 12/24/17 Multivit-Min/FA/Lycopen/Lutein [Abc Plus Tablet] 1 each PO DAILY 12/24/17 Tiotropium [place] [Spiriva 18 MCG] 2 puff INHALATION DAILY 12/24/17 Rosuvastatin Calcium 20 mg PO DAILY 12/05/18 Albuterol Aerosols [Ventolin Aerosols] 2.5 mg INHALATION Q6HWA.RT 03/05/19 Alendronate Sodium [Fosamax] 70 mg PO VILLANUEVA 03/05/19 Aspirin E.C. [Ecotrin] 81 mg PO DAILY@0800 03/05/19 Cholecalciferol (Vitamin D3) [D3-2000] 2,000 unit PO DAILY 03/05/19 Cyanocobalamin (Vitamin B-12) [B-12] 1,000 mcg PO DAILY 03/05/19 Loratadine 10 mg PO QHS 03/05/19 Omeprazole 20 mg PO DAILY 03/05/19 Clopidogrel Bisulfate [Plavix] 75 mg PO DAILY #30 tab 03/06/19 The following prescriptions were given: Clopidogrel Bisulfate [Plavix] 75 mg PO DAILY #30 tab Transmission Status: Pending to [id number] Primary Care Physician: [facility] [Primary Care Provider] - Please follow up with your Primary Care Physician in: 1 Week Test Results: Test results from this visit will be discussed in further detail at your follow- up appointment, if applicable. Please Follow Up With: [facility] When: 1 Week Proposed Discharge Date: 03/06/19
--- NOTE | 2019-03-06 11:52 | DS.PCM_ITS ---
Discharge Date and Diagnosis Date of Admission: 03/05/19 Date of Discharge: 03/06/19 - Primary Discharge Diagnosis Active and Suspected Problems 1. Acute small left posterior frontal stroke, history of prior right frontal and right occipital infarcts 2. CAD with history of stents 3. Hypertension 4. Hyperlipidemia 5. Chronic COPD 6. GERD 7. 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 Electronically Signed: Angel Charles, at 13:39 EDT , Service support , Brain MRI 03/05/19 16:28 IMPRESSION: 1. Small acute left posterior frontal infarct. 2. Chronic right frontal and right occipital infarcts. 3. Moderately extensive microvascular ischemic changes. 4. Mild chronic sinusitis. Electronically Signed: Francoise Delgado MD at 20:12 EDT Tel , Service support , ADDENDUM: 03/05/192043 IMPRESSION: 1. Small acute left posterior frontal infarct. 2. Chronic right frontal and right occipital infarcts. 3. Moderately extensive microvascular ischemic changes. 4. Mild chronic sinusitis. N.B. : The above information has been verbally conveyed by Francoise Delgado MD to Dr. Dago MD, on 03/05/2019 20:37:56 (ET). Electronically Signed: Francoise Delgado MD at 20:12 EDT Tel , Service support , Cervical Spine MRI 03/05/19 16:40 IMPRESSION: 1. C5-6 retrolisthesis, mild cord flattening and borderline canal stenosis. 2. Moderate to severe foraminal stenosis from C2-3 through C6-7. Electronically Signed: Francoise Delgado MD at 20:22 EDT Tel , Service support , Head/Neck CTA 03/05/19 20:39 IMPRESSION: 1. Unremarkable CTA head and neck. No high-grade stenosis or occlusion. 2. COPD. 3. Chronic sphenoid sinusitis. Electronically Signed: Francoise Delgado MD at 21:46 EDT Tel , Service support , Operations: None Procedures: 2-D Echocardiogram Summary of Care Provided: The patient is a 73 year old M admitted 03/05/2019 due to right hand weakness. 1. Small acute left posterior frontal CVA, history of prior right frontal and right occipital infarcts-MRI of the brain shows small acute left posterior frontal infarct. Chronic right frontal and right occipital infarcts. CTA of head and neck unremarkable, no high-grade stenosis or occlusion. Echocardiogram demonstrated an EF of 50%. Neurology consultation not available over the weekend and [facility]. Discharge on aspirin, statin and Plavix. [facility] 1 [facility]. Recommend outpatient PT. 2. CAD with history of stents-continue aspirin, statin, beta-juan david. 3. Hypertension-On amlodipine, carvedilol, lisinopril. Resume home BP regimen tomorrow. 4. Hyperlipidemia- continue statin. 5. COPD- no exacerbation, continue home aerosol/inhaler regimen. 6. GERD- Continue PPI. 7. Moderate to severe foraminal stenosis from C2-C3 through C6-C7- as noted on C-spine MRI. General: Alert, Oriented x3, Cooperative HEENT: Atraumatic, PERRLA, EOMI, Normocephalic Neck: Supple, No JVD, Negative Carotid Bruits Lungs: Clear to auscultation, Normal air movement Cardiovascular: Regular rate, Regular Rhythm, Normal S1, Normal S2, No murmurs Abdomen: Bowel Sounds Present, Soft, Non Tender, Non-Distended Extremities: No clubbing, No cyanosis, No edema, Capillary Refill Less than 3 Seconds Skin: No rashes, No breakdown Musculoskeletal: No Tenderness to Palpation of Joints or Extremities Neurological: Cranial nerves II-XII grossly intact, Neuro grossly intact Psych/Mental Status: Normal Affect, Appropriate Patient seen and examined prior to discharge. Physical assessment as noted above. Patient is stable for discharge with follow up recommendations as noted above. This patient was seen by BIANCA Gupta under the supervision of Dr. Beard. - Physical Exam Vital Signs Temp Pulse Resp BP Pulse Ox 98.0 F 62 12 137/71 H 93 03/06/19 09:15 03/06/19 09:15 03/06/19 09:15 03/06/19 09:15 03/06/19 09:15 Oxygen Flow Rate (L/min) 1 Oxygen Delivery Method Room Air Weight: 184 lb 8.43 oz Body Mass Index (BMI) 25.0 Intake and Output for Last 24 Hours 03/04/19 03/05/19 03/06/19 23:59 23:59 23:59 Intake Total 1100 / 1100 1360 / 1360 Balance 1100 / 1100 1360 / 1360 Laboratory Tests Past 24 Hrs 03/05/19 03/05/19 03/05/19 11:45 11:45 11:45 WBC 7.7 RBC 5.04 Hgb 15.2 Hct 44.6 MCV 88.5 MCH 30.2 MCHC 34.1 RDW Std Deviation 43.9 RDW Coeff of Min 13.6 Plt Count 177 MPV 9.9 Immature Gran % (Auto) 0.300 Neut % (Auto) 57.2 Lymph % (Auto) 29.4 [place] % (Auto) 10.4 H Eos % (Auto) 2.0 Baso % (Auto) 0.7 Absolute Neuts (auto) 4.4 Absolute Lymphs (auto) 2.26 Nucleated RBC % 0 PT 13.0 INR 1.0 APTT 29.4 Sodium 139 Potassium 3.9 Chloride 109 H Carbon Dioxide 26.0 Anion Gap 4 L BUN 8 Creatinine 0.76 Estim Creat Clear Calc 71.13 Est GFR (MDRD) Af Amer 130 Est GFR (MDRD) Non-Af 107 BUN/Creatinine Ratio 10.6 Glucose 95 Calcium 9.1 Magnesium Troponin I 0.024 Triglycerides Cholesterol LDL Cholesterol VLDL Cholesterol HDL Cholesterol TSH 03/05/19 03/05/19 03/06/19 17:05 17:05 06:45 WBC RBC Hgb Hct MCV MCH MCHC RDW Std Deviation RDW Coeff of Min Plt Count MPV Immature Gran % (Auto) Neut % (Auto) Lymph % (Auto) [place] % (Auto) Eos % (Auto) Baso % (Auto) Absolute Neuts (auto) Absolute Lymphs (auto) Nucleated RBC % PT INR APTT Sodium Potassium Chloride Carbon Dioxide Anion Gap BUN Creatinine Estim Creat Clear Calc Est GFR (MDRD) Af Amer Est GFR (MDRD) Non-Af BUN/Creatinine Ratio Glucose Calcium Magnesium 2.0 Troponin I 0.019 Triglycerides 190 Cholesterol 118 LDL Cholesterol 41 VLDL Cholesterol 38 HDL Cholesterol 39 L TSH 2.45 Discharge Diet: Low fat/ Low Cholesterol Discharge Activity: Return to Normal Activity Call your doctor if you observe: Numbness or Tingling, Shortness of breath, Dizziness, Fainting spells, Chest pain Home Medications: Medications to take at Discharge Albuterol Inhaler [Ventolin Hfa] 2 puff INHALATION Q4H PRN PRN 12/24/17 Amlodipine Besylate [Norvasc] 5 mg PO DAILY 12/24/17 Budesonide/Formoterol 160/4.5 [Symbicort 160/4.5 Mcg Inhaler (SP)] 2 puff IH BID 12/24/17 Carvedilol [Coreg] 37.5 mg PO BID 12/24/17 Fish Oil/Dha/Epa [Fish Oil 1,200 mg Fish Oil] 1,200 mg PO DAILY 12/24/17 Fluticasone 0.05% [Flonase Nasal [place]] 2 spray NASAL PRN PRN 12/24/17 Guaifenesin [Chest Congestion Relief] 400 mg PO Q4H PRN PRN 12/24/17 Lisinopril [Zestril] 10 mg PO DAILY 12/24/17 Multivit-Min/FA/Lycopen/Lutein [Abc Plus Tablet] 1 each PO DAILY 12/24/17 Tiotropium Rinard [Spiriva 18 MCG] 2 puff INHALATION DAILY 12/24/17 Rosuvastatin Calcium 20 mg PO DAILY 12/05/18 Albuterol Aerosols [Ventolin Aerosols] 2.5 mg INHALATION Q6HWA.RT 03/05/19 Alendronate Sodium [Fosamax] 70 mg PO VILLANUEVA 03/05/19 Aspirin E.C. [Ecotrin] 81 mg PO DAILY@0800 03/05/19 Cholecalciferol (Vitamin D3) [D3-2000] 2,000 unit PO DAILY 03/05/19 Cyanocobalamin (Vitamin B-12) [B-12] 1,000 mcg PO DAILY 03/05/19 Loratadine 10 mg PO QHS 03/05/19 Omeprazole 20 mg PO DAILY 03/05/19 Clopidogrel Bisulfate [Plavix] 75 mg PO DAILY #30 tab 03/06/19 Following Prescrptions Were Given to Patient: Clopidogrel Bisulfate [Plavix] 75 mg PO DAILY #30 tab Transmission Status: Received by [id number] - Please follow up with your Primary Care Physician in: 1 Week Please [facility] Disposition: Home Minutes spent on discharge:: 35 Patient Condition:: Stable Medical Necessity - Tobacco Use Smoking Status: Former smoker Tobacco Use: Cigarettes Meaningful Use Info Meaningful Use Diagnoses (Choose all that apply): Ischemic CVA - CVA Therapy Assessed for PT,OT and/or ST?: Yes - Ischemic Stroke Antithrombotic order at d/c?: Yes Dx of Atrial fib/flutter?: No Statins at discharge?: Yes Primary Dx Acute Ischemic CVA?: Yes IV tPA ordered during stay?: No Reason IV t-PA not ordered: Medical Contraindication
== END 2019-03-06 14:30 | disposition home or self-care (01) ==
LOC: ED 11:37 → PCU 16:09
PROVIDERS: Nurse Practitioner Family; Admitting Provider Internal Medicine; Emergency Provider Physician Assistant Medical; Referring Provider Internal Medicine; Visit Provider Internal Medicine
DX: I63.9 Cerebral infarction, unspecified (principal); K21.9 Gastro-esophageal reflux disease without esophagitis; J44.9 Chronic obstructive pulmonary disease, unspecified; E78.5 Hyperlipidemia, unspecified; R53.1 Weakness; I25.10 Atherosclerotic heart disease of native coronary artery without angina pectoris; R29.700 NIHSS score 0; R27.8 Other lack of coordination; M48.02 Spinal stenosis, cervical region; Z95.5 Presence of coronary angioplasty implant and graft; Z79.51 Long term (current) use of inhaled steroids; Z79.899 Other long term (current) drug therapy; Z87.891 Personal history of nicotine dependence
CPT/HCPCS: 36415; 70450; 70496; 70498; 70551; 72141; 80048; 80061; 83735; 84443; 84484; 85025; 85610; 85730; 93005; 93306; 94640; 94762; 96360; 96361; 97802; 99218; 99282; J7030; Q9957; Q9967; A4216; G0378

== ENCOUNTER → 2019-06-08 10:00 | Outpatient (CLI) | payer OTHER, SELFPAY ==
--- NOTE | 2019-06-08 10:06 | PCM.PR.TP ---
General Information - General Information Admitting Diagnosis: COPD/EMPHYSEMA OF LUNGS Gold Classification:: GOLD 2: Moderate - PFT FEV1:: 1.98 FVC:: 4.62 FEV1/FVC%:: 43 - Education/Goals Barriers to Learning: Vision Impairment Individual Counseling: Initial Assessment: Dyspnea control techniques at rest, activity, and ADLs, Inhaled and respiratory medications, Exacerbation prevention & management, Home exercise plan & guidelines Patient Goals: Breathe better: Initial Assessment, Increase endurance/stamina: Initial Assessment, Return to recreation/hobby: Initial Assessment, Control panic/anxiety: Initial Assessment, Symptom management: Initial Assessment, Improve weight: Initial Assessment Exercise - Initial Assessment - Visit Date of Eval: 06/08/19 - Problem/Goals Problems: Deconditioning, No regular exercise, Knowledge deficit exercise guidelines, Knowledge deficit exercise safety Goals:: Aerobic exercise 30-60 mins x 9 weeks - 12 WEEKS, SC: 2-3/wk - Physician Prescribed Exercise Modalities: Treadmill, Rower, Airdyne Frequency (days/week): 3 Duration (Minutes):: 30-45 Intensity: 60-80% age predicted maximum heart rate reserve METs - Progression: 0.5-1.0 MET, RPE 11-14 WEEK: 3 - RPE 11-14 Target Heart Rate:: 95-124 - Plan Plan and Plan to Review:: Benefits of exercise, Core components of exercise, How to measure dyspnea level, How to monitor dyspnea level, Exercise intensity, Exercise safety guideline, Home exercise guidelines, [place]: 3-4/-13 Disease Management - Initial - Problems/Goals-Hypoxemia Hypoxemia Problems:: Hypoxemia Hypoxemia Goals:: Hypoxemia managed - Problems/Goals-Medications Medication Problems:: Incorrect inahled Rx use, technique Medication Goals: Correct technique/timing & care of MDI, DPI, nebulizer, and spacer. - Problems/Goals-Bronchial Hygiene Bronchial Hygiene Problems:: Ineffective secretion clearance, Respiratory infection Prevention/Management Bronchial Hygiene Goals:: Pt demonstrates effective cough, effective secretion clearance., Pt describes signs and symptoms of infection. - Initial Assessment SpO2:: 95 FiO2:: 21 Does pt report taking home meds as prescribed?: Yes Medications: Yes MDI, Yes DPI, No Spacer Patient Reports:: No cough - Plans Hypoxemia Plan:: Monitor SpO2 rest & with exercise, Train appropriate O2 use at rest, Train appropriate O2 use with exercise, Train O2 safety & systems Reviewed prescribed medications:: Purpose, Schedule, Side effects, Importance of compliance Instruct correct technique/timing & care:: MDI, DPI, Nebulizer, Return demo use of inhaler Bronchial Hygiene Plan: Controlled cough, Vibratory PEP device, NS Nasal spray, Hydration, Hand hygiene, Evaluate sputum, Signs/symptoms to report: Psychosocial - Initial Assess - Problems/Goals Problems: Depression, Anxiety, Impaired Q.O.L. - Psychosocial Test Depression:: Impaired QOL Referred to MD for counseling:: No - Plan Reviewed screening results: Yes Instructions given regarding:: Benefits of exercise, Relaxation techniques, Training in coping strategies Tobacco - Initial Assessment - Program Goals Tobacco Program Goals: Complete smoking cessation. Attend education classes. Improve Knowledge Test score - Stage of Change Stages of Change:: Action - Learning Barriers Learning Barriers: Vision, Ready to Learn - Family Support Do you have family support?: Yes - Tobacco Use Tobacco Use: Non-smoker How long ago did you quit using tobacco products?: Greater than or equal to 6 months ago Do you use smokeless tobacco?: No - Intervention Smoking Cessation Referral:: No Individual Education/Counseling:: No Education Schedule Given:: Yes - Education Gave Education Materials For:: Pulmonary Disease, Risk Factors, Breathing Techniques, Medical Compliance, Pulmonary A&P, Exacerbation Signs & Symptoms, Stress & Relaxation Nutrition/Wt Mgmt - Initial - Weight Management Knowledge Deficit Management of:: Weight control w/Prednisone Admit Height:: 6 ft Admit Weight:: 184 lb Admit BMI:: 24.9 - Diabetes Diabetes:: No Insulin: No Do you monitor your blood sugar at home?: No - Intervention Referral to dietitian:: No Referral to Diabetic Clinic:: No Will attend diet classes:: Yes - Plan Nutrition Plan: Yes Review BMI or WC & identify target wt & strategies for wt control, Yes Nutrition education class:, Yes Physical activity log: Patient Health Questionnaire Initial Assessment 1. Little interest or pleasure in doing things: More than half the days 2. Feeling down, depressed, or hopeless: Several days 3. Trouble falling or staying asleep, or sleeping too much: Not at all 4. Feeling tired or having little energy: More than half the days 5. Poor appetite or overeating: Not at all 6. Feeling bad about yourself -- or that you are a failure or have let yourself or your family down: Not at all 7. Trouble concentrating on things, such as reading the newspaper or watching television: Nearly every day 8. Moving or speaking so slowly that other people could have noticed. Or the opposite - being so fidgety or restless that you have been moving around a lot more than usual: Not at all 9. Thoughts that you would be better off , or of hurting yourself in some way: Not at all Total Score: 8 COPD Knowledge Test Initial COPD is a lung disease that:: Makes it hard to breathe & gets worse over time In the [place] the term COPD describes 2 main lung conditions:: Emphysema & chronic bronchitis The most common lung irritant that causes COPD is:: Cigarette smoke Common signs and symptoms of COPD include:: An ongoing cough/cough that produces a large amount of mucus, & SOB If you have COPD, what steps can you take?: All of the above Swelling of the ankles is common in COPD:: False Fatigue [tiredness] is common in COPD:: True Wheezing is common in COPD:: True Crushing chest pain is common in COPD:: False Rapid weight loss is common in COPD:: False Breathlessness is a normal response to exercise: True Exercise should be avoided if it makes you short of breath: True All bronchodilators act within 10 minutes: True A spacer device increases the medication to the lungs: True Annual flu vaccine is recommended for pts w/lung disease: True COPD Knowledge Test Total Score:: 13 COPD Assessment Test [CAT] - Questions Never cough = 0, Cough all the time = 5: 2 No phlegm = 0, Chest full of phlegm = 5: 3 No chest tightness = 0, Chest very tight = 5: 1 No breathless w/exertion = 0, Very breathless w/exertion = 5: 4 No limitations w/activity = 0, Very limited w/activity = 5: 4 Confident leaving home = 0, Not at all confident = 5: 1 Sleep soundly = 0, Don't sleep soundly = 5: 0 Lots of energy = 0, No energy at all = 5: 4 Total CAT score:: 19 Self-Efficacy Initial Assessment We would like to know how confident you are in doing certain activities. Please select your confidence level for:: Select your confidence level for the following using the scale 1-10 where 1 is not at all confident and 10 is totally confident. Your score is the average of all 6 responses. Fatigue: How confident are you that you can keep the fatigue caused by your disease from interfering with the things you want to do? Select Number: 3 Physical Discomfort or Pain: How confident are you that you can keep the physical discomfort or pain of your disease from interfering with the things you want to do? Select Number: 5 Emotional Distress: How confident are you that you can keep the emotional distress caused by your disease from interfering with the things you want to do? Select Number: 7 Other Symptoms or Health Problems: How confident are you that you can keep other symptoms or health problems from interfering with the things you want to do? Select Number: 7 Different Tasks and Activities: How confident are you that you can do the different tasks and activities needed to manage your health condition so as to reduce your need to see a doctor? Select Number: 5 Medication: How confident are you that you can do things other than just taking medication to reduce how much your illness affects your everyday life? Select Number: 6 Total Score:: 5 Nutrition Survey - Nutrition Survey Instructions Scoring Instructions: Scoring is as follows: Yes = 1 points. No = 0 point. Patient score that is >/=12 is considered to be at potential nutritional risk and could benefit from a referral to a registered dietitian. - Nutrition Survey Initial Have you lost >10 lbs over the past 2 months without trying?: No Are you following a special diet at home for diabetes, low fat, or low salt?: Yes Are you interested in meeting with a dietitian for help understanding your diet?: No Do you eat less than 3 meals a day?: No Do you eat fatty meats (hull, sausage, ribs, etc), fried foods, desserts, large amounts of salad dressings, margarine, butter, or cheese most days?: No Do you have food allergies? [Enter types in comment field]: No Do you eat in restaurants more than 3 times a week?: No Do you season food with salt, seasoning salt, or garlic salt?: No Do you used canned, boxed, frozen meals, or soups, seasoning packets?: No Total Score:: 1
--- NOTE | 2019-06-08 10:06 | PCM.PR.HP ---
History of Present Illness Arrival date:: 06/08/19 Arrival time:: 10:09 Date of Referral:: 05/26/19 Date of Evaluation: 06/08/19 Referring Physician: DAMION RAI Primary Diagnosis: COPD History of Present Illness: COPD mMRC Breathless Scale: When is the patient short of breath? Y/N Grade: Description of Breathlessness: 0 I only get breathless with strenuous exercise. 1 I get short of breath when hurrying on level ground or walking up a slight hill. 2 On level ground, I walk slower than people of the same age because of breathless, or have to stop for breath when walking at my own pace. 3 I stop for breath after walking 100 yards or after a few minutes on level ground. 4 I am too breathless to leave the house or I am breathless when dressing. Respiratory Problems: Yes: Wheezing, Able to Speak in Full Sentences, Anxiety, Dyspnea with Activity No: Dyspnea Lying Down Flat Home Medications: Home Medications Albuterol Inhaler [Ventolin Hfa] 2 puff INHALATION Q4H PRN PRN 12/24/17 Amlodipine Besylate [Norvasc] 5 mg PO DAILY 12/24/17 Budesonide/Formoterol 160/4.5 [Symbicort 160/4.5 Mcg Inhaler (SP)] 2 puff IH BID 12/24/17 Carvedilol [Coreg] 37.5 mg PO BID 12/24/17 Fish Oil/Dha/Epa [Fish Oil 1,200 mg Fish Oil] 1,200 mg PO DAILY 12/24/17 Guaifenesin [Chest Congestion Relief] 400 mg PO Q4H PRN PRN 12/24/17 Lisinopril [Zestril] 10 mg PO DAILY 12/24/17 Multivit-Min/FA/Lycopen/Lutein [Abc Plus Tablet] 1 each PO DAILY 12/24/17 Tiotropium Wilson [Spiriva 18 MCG] 2 puff INHALATION DAILY 12/24/17 Rosuvastatin Calcium 20 mg PO DAILY 12/05/18 Albuterol Aerosols [Ventolin Aerosols] 2.5 mg INHALATION Q6HWA.RT 03/05/19 Alendronate Sodium [Fosamax] 70 mg PO VILLANUEVA 03/05/19 Aspirin E.C. [Ecotrin] 81 mg PO DAILY@0800 03/05/19 Cholecalciferol (Vitamin D3) [D3-2000] 2,000 unit PO DAILY 03/05/19 Cyanocobalamin (Vitamin B-12) [B-12] 1,000 mcg PO DAILY 03/05/19 Loratadine 10 mg PO QHS 03/05/19 Omeprazole 20 mg PO DAILY 03/05/19 Clopidogrel Bisulfate [Plavix] 75 mg PO DAILY #30 tab 03/06/19 Fluticasone 0.05% [Flonase Nasal [place]] 1 spray NASAL BID 06/08/19 Loratadine [Wal-Itin] 10 mg PO 06/08/19 Oxygen, Home [Home Oxygen] 2 lpm NASAL 06/08/19 Allergies/Adverse Reactions: Allergies No Known Allergies Allergy (Verified 12/05/18 14:57) - Secretions Normal Color:: CLEAR Thin:: Yes Amount/Day:: 1 TSP Cough:: Yes AM: Yes Hx of Sleep Apnea: Yes Do you snore loudly (louder than talking or can be heard through closed doors)?: Yes - DIAGNOSED WIHT RENITA, HAS CPAP AT HOME W/OXYGEN FOR USE AT HS. Do you often feel tired/ fatigued/ sleepy during daytime?: No Has anyone observed you stop breathing during sleep?: No History of Hypertension (for STOP score): Yes STOP Results: Positive Medical Utilization Do you use a peak flow meter at home?: No Do you use a spacer device with your inhalers?: No Number of hospital visits in the last year?: 1 Number of emergency room visits in the last year?: 1 - [facility] ER Do you see your physician on a regular schedule?: Yes How often?: 3 MONTHS AND NEEDED Advanced Directives - Advanced Directives Power of [employer]: Yes - HAS A TRUST AND WAS JUST RECENTLY UPDATED Living Will: Yes Advance Directives Information Provided: No Advance Directives on File: No - MOLST See MOLST form: No Past Medical History Medical History: Past Medical History (Last Updated 06/08/19 @ 10:40 by Sascha Hopson, [employer], [employer], BS) CAD (coronary artery disease) I25.10 CVA (cerebral vascular accident) I63.9 Emphysema of lung J43.9 GERD (gastroesophageal reflux disease) K21.9 Hyperlipidemia E78.5 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 RENITA (obstructive sleep apnea) G47.33 Pulmonary nodules R91.8 Skin cancer of face C44.300 COPD (chronic obstructive pulmonary disease) J44.9 Chronic sphenoidal sinusitis J32.3 Hypertension I10 Surgical History: Past Surgical History (Last Updated 06/08/19 @ 10:40 by Sascha Hopson, [employer], [employer], BS) H/O hernia repair Z98.890, Z87.19 Stented coronary artery Z95.5 - Current/ Previous Services Pulmonary Rehab:: No Social History - Smoking History Smoking Status: Former smoker Hx Smoking Cessation Date: 06/23/05 Hx Tobacco Use: No Hx Smoking Exposure: No - Alcohol Use Alcohol Usage: Yes - Substance Abuse Hx Substance Use: No - Occupation Occupation (List type of work in comments):: Retired - Hobbies, Recreation, Social Activities Hobbies: Exercise - HAD HOME GYM OUTFITTED IN HOME UNABEL TO USE CURRENTLY, Other Recreational Activities: I am able to engage in most, but not all activities Functioning ADL/IADL - Current Ability Current Ability: Independent Self-Care (e.g.,grooming, dressing, & bathing), Independent Ambulation, Independent Transfer, Independent Household tasks (e.g., light meal prep, laundry, shopping) - Pt Functioning Prior to Problem Prior Functioning: Self-Care (e.g.,grooming, dressing, & bathing): Independent, Ambulation: Independent, Transfer: Independent, Household tasks (e.g., light meal prep, laundry, shopping): Independent Social Environment - Status Marital Status: - Current Living Arrangements Living Environment:: Spouse - Children How many children do you have?: 2 Do any of your children live nearby?: Yes - [facility] - Safety Do you feel safe in your surroundings?: Yes - Assistance Do you need any assistance at home?: NONE Review of Systems Review of Systems: Right click = Denies (Slash). Left click = Reports (Henriette) Respiratory: Reports: Appetite, Normal, Sleep, Normal. Denies: Cough, SOB at Rest, Sputum production Is Patient Pain Free?: Yes Pain Location: none, neck Pain Level: 0/10 Risk Factor Assessment - Chief Complaint Chief Complaint: [facility] PULM REHAB TODAY FOR TREATMENT OF HIS COPD/EMPHYSEMA. - Vital Signs Temperature: 98.7 F Pulse Rate: 62 Pulse Rhythm: Regular Respiratory Rate: 12 Pulse Ox: 95 Blood Pressure: 136/70 Nailbeds:: PINK - Diabetes Nutrition Referral for Diabetes: No - Obesity Height: 6 ft Weight:: 184 lb Weight in Pounds: 184.0 lbs Weight Source: Standing Scale Body Mass Index (BMI): 24.9 Nutritional Referral for Obesity: No - Physical Activity Physical Inactivity: Recreational activity - Risk Stratification Risk Guidelines: Lowest Risk: Risk Factor for Smoking, Risk Factor for Dyslipidemia, Risk Factor for Diabetes, Risk Factor for Sedentary Lifestyle, Risk Factor for Depression, Moderate Risk: Risk Factor for Obesity, Risk Factor for Hypertension - For Smoking Smoking Risk Guidelines: Smoking Low Risk: None or quit greater than 6 months ago. Smoking Moderate Risk: Smoker or quit 6 months or less ago. Smoking High Risk: Smoker - For Dyslipidemia Dyslipidemia Risk Guidelines: Low Risk: Moderate Risk: High Risk: 15-25% fat 25.1-29% fat >/= 30% fat. <7% sat fat 7-9% sat fat >9% sat fat. <150 mg chol 150-299 mg chol >/= 300 mg chol. LDL <100 LDL 100-129 LDL >/= 130. Chol/HDL ratio <5.0 Chol/HDL ratio 5.0-6.0 Chol/HDL ratio >6.0. Triglycerides <100 Triglycerides 100-149 Triglycerides >/= 150 - For Diabetes Mellitus Diabetes Risk Guidelines: Diabetes Low Risk: HgA1c <6.5% and/or FBG <120. Diabetes Moderate Risk: HgA1c 6.6-7.9% and/or FBG 120-180. Diabetes High Risk: HgA1c >/= 8% and/or FBG >180 - For Obesity/Overweight Obesity/Overweight Risk Guidelines: Obesity Low Risk: BMI <25.0. Obesity Moderate Risk: BMI 25-29.9. Obesity High Risk: BMI >/= 30.0 - For Hypertension Hypertension Risk Guidelines: Hypertension Low Risk: Systolic <120 and Diastolic <80. Hypertension Moderate Risk: Systolic 120-139 and Diastolic 80-89. Hypertension High Risk: Systolic >/= 140 and Diastolic >/= 90 - For Sedentary Lifestyle Sedentary Lifestyle Risk Guidelines: Sedentary Lifestyle Low Risk: >/= 1,500 kcal/week. Sedentary Lifestyle Moderate Risk: 700-1,499 kcal/week. Sedentary Lifestyle High Risk: < 700 kcal/week - For Depression Depression Risk Guidelines: Depression Low Risk: Not clinically depressed. Depression Moderate Risk: Mildly depressed. Depression High Risk: Clinically depressed Motivation - Motivation to Participate On a scale of 1 to 10, how prepared are you to commit to attending program?: 10 - DID CARDIAC REHAB IN 2000. What do you see as barriers to successfully being able to complete the program?: WINTER WEATHER What do you see as the benefits of succesfully completing the program? In other words, what do you hope to get out of participating in the program?: HOPEFULLY BEING ABLE TO GET BACK TO EXERCISE AT HOME AGAIN. Are there issues you are dealing with that will interfere with completing the program?: JUST EXERTING MYSELF, GETTING VERY WINDED DYSPNIC UNABLE TO USE GYM AT HOME Do you have a spouse or signficant other, family or friends who will help support you to complete the program?: YES Diagnostic Data Review - Pulmonary Function Test FEV1:: 1.98 FVC:: 4.62 FEV1/FVC%:: 43 Gold Classification: GOLD class II(mod. COPD)with FEV1/FVC <70%, 50%</= FEV1< 50% predicted
[2019-06-08 10:47] VITALS: BP 136/70; PULSE 62; RESP 12; TEMP 37.1; O2SAT 95; BMI 24.9
[2019-06-08 10:48] VITALS: O2SAT 95; BMI 24.9
== END ==
DX: J44.9 Chronic obstructive pulmonary disease, unspecified (principal)

== ENCOUNTER 2019-06-21 10:15 | Outpatient (RCR) | payer OTHER, MEDICARE, SELFPAY ==
[2019-06-08 10:48] VITALS: BMI 24.9
== END 2019-06-22 23:59 ==
LOC: PR 10:15
DX: J44.9 Chronic obstructive pulmonary disease, unspecified (principal)
CPT/HCPCS: 97150; G0424

== ENCOUNTER 2019-07-23 10:15 | Outpatient (RCR) | payer OTHER, MEDICARE, SELFPAY ==
[2019-06-08 10:48] VITALS: BMI 24.9
== END 2019-07-23 23:59 ==
LOC: PR 10:15
DX: J44.9 Chronic obstructive pulmonary disease, unspecified (principal)
CPT/HCPCS: 97150; G0424

== ENCOUNTER 2019-08-20 10:15 | Outpatient (RCR) | payer OTHER, MEDICARE, SELFPAY ==
[2019-06-08 10:48] VITALS: BMI 24.9
--- NOTE | 2019-08-13 07:03 | PCM.PR.TP ---
Exercise - 60-Day Assessment - Physician Prescribed Exercise Modalities: Treadmill, Rower, Airdyne Frequency (days/week): 3 Duration (Minutes):: 30-45 Intensity: 60-80% of age predicted maximum heart rate reserve Aerobic Exercise [30-60 min 3-7x/week]:: Progressing Target heart rate: 95-123 Jaiden METs - Progression: 0.5-1.0 MET, RPE 11-14 WEEK: 4.5 - increase from 3.5 - Home Exercise Home Exercise:: Yes Mode: Treadmill Frequency:: daily Time (minutes):: 30 Disease Management - 60-Day - Hypoxemia Reassessment: Demonstrates knowledge of O2 Rx at rest, Demonstrates knowledge of O2 Rx with exercise, Using O2 as prescribed, Has home O2 as prescribed, Uses port O2 as prescribed - Medications Medication list reviewed:: Yes Taking medications 100% of the time:: Met Medication reassessment: Yes Pt demonstrates correct technique timing for MDI, Yes Pt demonstrates correct technique timing for DPI, Yes Pt demonstrates correct technique timing for NEB, Yes Pt demonstrates correct technique timing for spacer - Bronchial Hygiene Bronchial Hygiene Plan: Yes Pt demonstrates correctly for effective cough, Yes Pt demo correct for device, Yes Pt demo correct for improved hydration, Yes Pt demo correct for hand hygiene, Yes Pt demo correct for evalute sputum, Yes Pt demo correct for verbalize when to call MD Psychosocial - 60-Day - Assessment Depression reassess: Management of stress: Met, Management of depression: Met, Practicing interventions: Met Tobacco - 60-Day Assessment - Program Goals Tobacco Program Goals: Complete smoking cessation. Attend education classes. Improve Knowledge Test score - Stage of Change Stages of Change:: Action - Learning Barriers Learning Barriers: Participates in education - Family Support Do you have family support?: Yes - Tobacco Use Tobacco Use: Non-smoker - Intervention Education Schedule Given:: Yes - Education Gave Education Materials For:: Pulmonary Disease, Risk Factors, Breathing Techniques, Medical Compliance, Pulmonary A&P, Exacerbation Signs & Symptoms, Stress & Relaxation Nutrition/Wt Mgmt - 60-Day - Weight Management Weight Assessment:: Wt stable Weight:: 193 lb 8 oz Weight Goals Progress:: Progressing Patient Health Questionnaire 60-Day Re-eval Assessment 1. Little interest or pleasure in doing things: Not at all 2. Feeling down, depressed, or hopeless: Not at all 3. Trouble falling or staying asleep, or sleeping too much: Not at all 4. Feeling tired or having little energy: Not at all 5. Poor appetite or overeating: Not at all 6. Feeling bad about yourself -- or that you are a failure or have let yourself or your family down: Not at all 7. Trouble concentrating on things, such as reading the newspaper or watching television: Not at all 8. Moving or speaking so slowly that other people could have noticed. Or the opposite - being so fidgety or restless that you have been moving around a lot more than usual: Not at all 9. Thoughts that you would be better off , or of hurting yourself in some way: Not at all Total Score: 0 COPD Assessment Test [CAT] - Questions Never cough = 0, Cough all the time = 5: 1 No phlegm = 0, Chest full of phlegm = 5: 2 No chest tightness = 0, Chest very tight = 5: 0 No breathless w/exertion = 0, Very breathless w/exertion = 5: 3 No limitations w/activity = 0, Very limited w/activity = 5: 3 Confident leaving home = 0, Not at all confident = 5: 0 Sleep soundly = 0, Don't sleep soundly = 5: 0 Lots of energy = 0, No energy at all = 5: 2 Total CAT score:: 11 Self-Efficacy 60-Day Re-eval Assessment We would like to know how confident you are in doing certain activities. Please select your confidence level for:: Select your confidence level for the following using the scale 1-10 where 1 is not at all confident and 10 is totally confident. Your score is the average of all 6 responses. Fatigue: How confident are you that you can keep the fatigue caused by your disease from interfering with the things you want to do? Select Number: 10 Physical Discomfort or Pain: How confident are you that you can keep the physical discomfort or pain of your disease from interfering with the things you want to do? Select Number: 10 Emotional Distress: How confident are you that you can keep the emotional distress caused by your disease from interfering with the things you want to do? Select Number: 10 Other Symptoms or Health Problems: How confident are you that you can keep other symptoms or health problems from interfering with the things you want to do? Select Number: 10 Different Tasks and Activities: How confident are you that you can do the different tasks and activities needed to manage your health condition so as to reduce your need to see a doctor? Select Number: 10 Medication: How confident are you that you can do things other than just taking medication to reduce how much your illness affects your everyday life? Select Number: 10 Total Score:: 10
== END 2019-08-21 23:59 ==
LOC: PR 10:15
DX: J44.9 Chronic obstructive pulmonary disease, unspecified (principal)
CPT/HCPCS: 97150; G0424

== ENCOUNTER 2019-09-10 10:15 | Outpatient (RCR) | payer OTHER, MEDICARE, SELFPAY ==
[2019-06-08 10:48] VITALS: BMI 24.9
== END 2019-09-21 23:59 ==
LOC: PR 10:15
DX: J44.9 Chronic obstructive pulmonary disease, unspecified (principal)
CPT/HCPCS: 97150; G0424

== ENCOUNTER 2022-06-18 14:03 | Emergency (ER) | payer MEDICARE, SELFPAY ==
[2022-06-18 14:04] VITALS: BP 119/74; PULSE 86; RESP 15; TEMP 36.8; O2SAT 98; BMI 24.8
--- NOTE | 2022-06-18 17:13 | EDS_ITS ---
HPI <ÁLVARO Jacobs - Last Filed: 06/18/22 21:06> History of Present Illness Chief Complaint: Upper Extremity Injury Narrative Narrative: Patient presents today with painful muscle weakness in his upper arms and legs bilaterally. He states he has had this for about 2 weeks and it has gradually worsened. The pain starts in his shoulders bilaterally and radiates into his biceps. He also has pain in his hips bilaterally that radiates into his hamstri ngs. He states brushing his hair and raising his arms above his head has become increasingly difficult and painful. Lifting blankets off in the morning has been very difficult for him. Patient also states he has had a decreased appetite over this time and has been more fatigued. Patient has a history of chronic lower back pain that is being treated by pain management. Patient does not have a history of arthritis. 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 RENITA (obstructive sleep apnea) Pulmonary nodules Skin cancer of face Home Medications albuterol sulfate 90 mcg/actuation aerosol inhaler (Ventolin HFA) 2 puff inhalation Q4H PRN PRN Sob &/Or Wheezing 12/24/17 [History Last Taken Unknown] amlodipine 5 mg tablet (Norvasc) 5 mg PO DAILY blood pressure 12/24/17 [History Last Taken 03/04/19] budesonide-formoterol HFA 160 mcg-4.5 mcg/actuation aerosol inhaler (Symbicort) 2 puff IH BID breathing 12/24/17 [History Last Taken 03/05/19] carvedilol 25 mg tablet (Coreg) 37.5 mg PO BID blood pressure 12/24/17 [History Last Taken 03/05/19] fish oil-dha-epa 1,200 mg-144 mg-216 mg capsule 1,200 mg PO DAILY supplement 12/24/17 [History Last Taken 03/04/19] guaifenesin 400 mg tablet (Chest Congestion Relief) 400 mg PO Q4H PRN PRN Congestion 12/24/17 [History Last Taken 03/04/19] lisinopril 10 mg tablet (Zestril) 10 mg PO DAILY blood pressure 12/24/17 [History Last Taken 03/05/19] ddppidht-jsa-djwan acid 0.4 mg-lycopene 300 mcg-lutein 250 mcg tablet (ABC Plus) 1 ea PO DAILY vitamin 12/24/17 [History Last Taken 03/04/19] tiotropium bromide 18 mcg capsule with inhalation device (Spiriva with HandiHaler) 2 puff inhalation DAILY breathing 12/24/17 [History Last Taken 03/04/19] rosuvastatin 40 mg tablet 20 mg PO DAILY cholesterol 12/05/18 [History Last Taken 03/04/19] albuterol sulfate 2.5 mg/3 mL (0.083 %) solution for nebulization 2.5 mg inhalation Q6HWA.RT breathing 03/05/19 [History Last Taken 03/04/19] alendronate 70 mg tablet 70 mg PO VILLANUEVA bone health 03/05/19 [History Last Taken 02/28/19] aspirin 81 mg tablet,delayed release 81 mg PO DAILY@0800 heart health 03/05/19 [ History Last Taken 03/05/19] cholecalciferol (vitamin D3) 50 mcg (2,000 unit) capsule 2,000 unit PO DAILY vitamin 03/05/19 [History Last Taken 03/04/19] cyanocobalamin (vitamin B-12) 1,000 mcg tablet 1,000 mcg PO DAILY vitamin 03/05/19 [History Last Taken 03/04/19] loratadine 10 mg tablet 10 mg PO QHS allergies 03/05/19 [History Last Taken 03/04/19] omeprazole 20 mg capsule,delayed release 20 mg PO DAILY gerd 03/05/19 [History Last Taken 03/05/19] clopidogrel 75 mg tablet 75 mg PO DAILY #30 tabs 03/06/19 [Rx Last Taken Unknown] Oxygen, Home [Home Oxygen] 2 lpm 06/08/19 [History Last Taken Unknown] fluticasone propionate 50 mcg/actuation nasal spray,suspension 1 spray NASAL BID 06/08/19 [History Last Taken Unknown] loratadine 10 mg tablet 10 mg PO 06/08/19 [History Last Taken Unknown] prednisone 10 mg tablet See Taper PO DAILY #30 tabs 06/18/22 [Rx Last Taken Unknown] Allergy/AdvReac Type Severity Reaction Status Date / Time No Known Allergies Allergy Verified 06/18/22 17:05 Surgical History H/O hernia repair Stented coronary artery Social History Smoking Status: Former smoker ROS <ÁLVARO Jacobs - Last Filed: 06/18/22 21:06> ROS ED Constitutional Constitutional ED: Denies chills, fever(s) or sweats Eyes Eyes: Denies blurry vision, change in vision or diplopia ENT ENT ED: Denies rhinorrhea or sore throat Cardiovascular Cardiovascular: Denies chest pain, palpitations or racing heartbeat Respiratory/Chest Respiratory/Chest: Denies cough, dyspnea or dyspnea on exertion Gastrointestinal Gastrointestinal: Denies abdominal pain, diarrhea, nausea or vomiting Genitourinary Genitourinary ED: Denies dysuria, hematuria or urinary frequency Musculoskeletal Musculoskeletal: Reports back pain, difficulty walking, joint pain, joint stiffness, limited range of motion and myalgias; Denies neck pain Integumentary Denies abscess, Abrasions or rash Neurologic Neurologic: Reports weakness; Denies headache(s) or paresthesias Psychiatric Psychiatric: Denies anxiety, depression or suicidal ideation Allergic/Immunologic Allergic/Immunologic ED: Denies mouth swelling, tongue swelling or urticaria EXAM <ÁLVARO Jacobs - Last Filed: 06/18/22 21:06> Physical Exam Const Vital Signs: 06/18/22 14:04 06/18/22 17:09 Temperature 98.2 F Temperature Source Temporal Pulse Rate 86 Respiratory Rate 15 Respiratory Effort Normal Non-Labored Respiratory Pattern Normal Blood Pressure 119/74 Blood Pressure Mean 89 Pulse Ox 98 Oxygen Delivery Method Room Air Positive well nourished and well developed General Appearance ED: well developed and NAD HEENT Reports moist mucous membranes normocephalic and atraumatic Eyes PERRL and EOMs intact bilaterally Neck full ROM and supple Chest Wall inspection of chest normal Resp normal respiratory effort and clear to auscultation bilaterally Cardio regular rate, regular rhythm and no murmurs GI non-tender, non-distended and no masses Palpation: soft Back/Spine Cervical Spine: Negative for cervical spine tenderness Thoracic Spine / Upper Back: Negative for thoracic spinal tenderness Lumbar Spine / Lower Back: Negative for lumbar spinal tenderness Extremity normal to inspection Extremity Narrative: Decreased active range of motion in the arms and legs bilaterally due to pain. Patient is able to ambulate. Neuro oriented x3, CN's II-XII intact bilaterally, moves all extremities, no focal motor deficits and no sensory deficits noted Sensorium / Orientation: alert Motor Exam: strength 5/5 throughout and muscle tone normal throughout Psych mental status grossly normal Skin General Skin Exam: Negative for petechiae Lesions: no lesions Rashes: no rashes Trauma: no lacerations or abrasions [facility] <ÁLVARO Jacobs - Last Filed: 06/18/22 21:06> [facility] Narrative Medical decision making narrative: I did not feel imaging would be beneficial as the joint pain was acute and patient has no previous history of arthritic pain/ arthritis. Patient has a family history of rheumatoid arthritis so it very well could be a rheumatologic condition. I have concerns for polymyalgia rheumatica so patient has been started on a prednisone taper. Patient is to follow-up with PCP for further investigation of symptoms. Patient was able to ambulate here in the ED. He is nontoxic-appearing and in no acute distress. Vital signs are within normal limits and stable. I am comfortable with him discharging home in stable condition and patient is comfortable with plan. Lab Data Attestation: I reviewed the patient's lab results. Lab results narrative: WBC 12.4, ESR 43, potassium 3.3, anion gap 4, CRP 49, Urine sent for culture. <Dr. Trey Amato DO - Last Filed: 06/18/22 21:43> [facility] Treatment and Re-Evaluation Narrative: This patient was seen with a PA/[employer] Individually assessed they patient including history and physical. I have reviewed everything on the chart that is available and agree with the documentation provided by the PA/[employer] including discussion about the assessment, treatment plan, discussion, and return precautions. Presenting with generalized weakness and achy joints all over. He states is a new symptom for him. He denies a fever. Patient is mostly saying he is having trouble lifting his arms and legs but he is able to do this on exam. He was able to walk into the emergency room. Blood work is obtained and his CBC shows a slight leukocytosis 12.4. Otherwise his hemoglobin hematocrit are stable. Platelets are normal. Renal function and electrolytes normal with exception of a potassium of 3.3. Glucose is elevated at 139 without anion gap. Urinalysis negative for infection. COVID and flu swabs are negative. Inflammatory markers were ordered and his ESR is 43 and his CRP is 49. This does not appear to be extremely elevated. Given the clinical picture we will treat the patient has a polymyalgia rheumatica. He is Started on prednisone therapy. He is discharged home to follow-up with [place] doctor. Return precautions discussed. Clinically the patient is well-appearing normal vital signs. Discharge Plan Triage Chief Complaint: Upper Extremity Injury ED Midlevel Provider: Ruth Lopez ED Provider: Trey Amato Dx/Rx/DC Orders Clinical Impression: Upper and lower extremity pain, Muscle weakness (generalized) Instructions: Polymyalgia Rheumatica, ED Myalgias Prescriptions: New prednisone 10 mg tablet See Taper PO DAILY Qty: 30 0RF Taper: Prednisone Taper 60 mg WITH BREAKFAST for 3 Days and 0 Hour 50 mg WITH BREAKFAST for 3 Days and 0 Hour 40 mg WITH BREAKFAST for 3 Days and 0 Hour 30 mg WITH BREAKFAST for 3 Days and 0 Hour 20 mg WITH BREAKFAST for 3 Days and 0 Hour 10 mg WITH BREAKFAST for 3 Days and 0 Hour Rx Instructions: TAPER: 60 mg with breakfast for 3 Days; 50 mg with breakfast for 3 Days; 40 mg with breakfast for 3 Days; 30 mg with breakfast for 3 Days; 20 mg with breakfast for 3 Days; 10 mg with breakfast for 3 Days No Action carvedilol [Coreg] 25 MG tablet 37.5 mg PO BID amlodipine [Norvasc] 5 MG tablet 5 mg PO DAILY lisinopril [Zestril] 10 MG tablet 10 mg PO DAILY albuterol sulfate [Ventolin HFA] 1 INHALER inhaler 2 puff inhalation Q4H PRN PRN (Reason: Sob &/Or Wheezing) guaifenesin [Chest Congestion Relief] 400 MG tablet 400 mg PO Q4H PRN PRN (Reason: Congestion) tiotropium bromide [Spiriva with HandiHaler] 1 PUFF inhaler 2 puff inhalation DAILY [id number]-lutein [ABC Plus] 1 EACH tablet 1 ea PO DAILY fish oil-dha-epa 1 EACH capsule 1,200 mg PO DAILY budesonide-formoterol [Symbicort] 1 INHALER inhaler 2 puff IH BID rosuvastatin 40 MG tablet 20 mg PO DAILY cyanocobalamin (vitamin B-12) 1,000 MCG tablet 1,000 mcg PO DAILY aspirin 81 MG tablet 81 mg PO DAILY@0800 omeprazole 20 MG capsule,delayed release(DR/EC) 20 mg PO DAILY loratadine 10 MG tablet 10 mg PO QHS cholecalciferol (vitamin D3) 2,000 UNIT capsule 2,000 unit PO DAILY albuterol sulfate 2.5 MG/3 ML solution for nebulization 2.5 mg inhalation Q6HWA.RT alendronate 70 MG tablet 70 mg PO VILLANUEVA clopidogrel 75 MG tablet 75 mg PO DAILY Qty: 30 0RF fluticasone propionate 1 SPRAY spray,suspension 1 spray NASAL BID loratadine 10 MG tablet 10 mg PO Oxygen, Home [Home Oxygen] 2 lpm NASAL Primary Care Provider: [facility] Ref[facility]: [facility] [Primary Care Provider] - 3-5 Days Activity Restrictions/Additional Instructions: Please follow-up with PCP. Return if symptoms worsen. Disposition Disposition: Home, Self Care Discharge Date/Time: 06/18/22 19:29
[2022-06-18 17:49] LABS: Erythrocyte Sedimentation Rate 43 mm/hr (0-20)
[2022-06-18 17:52] VITALS: O2SAT 97
[2022-06-18 17:52] LABS: Anion Gap 4 (5-15); BUN 12 mg/dL (7-18); BUN/Creat Ratio 14.3 RATIO (10-20); Calcium,Total 9.3 mg/dL (8.5-10.1); Chloride 106 mmol/L (98-107); Creatinine, Serum 0.84 mg/dL (0.70-1.30); EST Glomerular Filtration Rate 94 mL/min (>60); Est Glom Filt Rate - Afr Amer 114 mL/min (>60); Estimated Creatinine Clearance 80.83 ml/min; Glucose 139 mg/dL (74-106); Potassium 3.3 mmol/L (3.5-5.1); Sodium Level 138 mmol/L (136-145)
[2022-06-18 17:53] LABS: Absolute Lymphocyte Count 2.56 X10^3/uL (0.83-4.51); Absolute Neutrophil Count 8.5 X10^3/uL (2.0-7.7); Basophil# 0.04 X10^3/uL; Basophil% 0.3 % (0-1); Eosinophil# 0.15 X10^3/uL; Eosinophils% 1.2 % (0-5); Hematocrit 40.7 % (40-54); Hemoglobin 13.3 g/dL (13.0-16.5); Lymphocyte # 2.56 X10^3/ul (0.83-4.51); Lymphocyte % 20.7 % (19-41); Mean Corp Hgb Conc 32.7 g/dL (32-36); Mean Corpuscular Volume 85.7 fL (80-94); Mean Platelet Vol. 10.3 fl (6.2-12.0); Monocyte# 1.12 X10^3/uL; NRBC Flagged by Analyzer 0 % (0-5); Neutrophil # 8.45 X10^3/uL (2.7-7.7); Neutrophil % 68.2 % (47-70); Platelet Count 300 K/mm3 (150-450); RBC Distribution Width CV 13.4 % (11.6-14.6); RBC Distribution Width SD 42.2 fl (35.1-43.9); Red Blood Count 4.75 M/mm3 (4.6-6.2); White Blood Count 12.4 K/mm3 (4.4-11.0)
[2022-06-18 18:05] LABS: Color, Urine Yellow (Yellow); Glucose, Dipstick Normal (Normal); Ketone-Dipstick Negative (Negative); Leukocyte Esterase-Dipstick 25 /ul (Negative); Nitrite-Dipstick Negative (Negative); Occult Blood-Urine Negative /ul (Negative); Protein-Dipstick 15 mg/dl (Negative); Red Blood Cells-Urine 0 SEEN /hpf (0-5); Squamous Epithelial Cells - UA 0 SEEN /hpf (0-5); Urine Bilirubin Dipstick Negative (Negative); Urine Clarity Clear (Clear); Urine Urobilinogen Normal (Normal); Urine pH 6.5 (5.0 - 8.0)
[2022-06-18 18:16] LABS: White Blood Cells 0-5 SEEN /hpf (0-5)
[2022-06-18 18:17] LABS: Bacteria 1+ /hpf (None Seen); Mucous, Urine 4+ /hpf (<or=2+)
[2022-06-18 19:22] VITALS: RESP 18
[2022-06-18] MEDS: MethylPREDNISolone 125 MG/2 ML Vial IV (19:24)
== END 2022-06-18 19:29 | disposition home or self-care (01) ==
PROVIDERS: Physician Assistant; Emergency Provider Student in an Organized Health Care Education/Training Program; Visit Provider Student in an Organized Health Care Education/Training Program
DX: M25.512 Pain in left shoulder (principal); M25.511 Pain in right shoulder; M62.81 Muscle weakness (generalized); I25.10 Atherosclerotic heart disease of native coronary artery without angina pectoris; M54.50 Low back pain, unspecified; G47.33 Obstructive sleep apnea (adult) (pediatric); G89.29 Other chronic pain; Z86.73 Personal history of transient ischemic attack (TIA), and cerebral infarction without residual deficits; Z87.891 Personal history of nicotine dependence
CPT/HCPCS: 80048; 81001; 85025; 85652; 86140; 87428; 96374; 99284; A4216

== ENCOUNTER → 2022-07-11 | Outpatient (CLI) | payer MEDICARE, SELFPAY ==
[2022-07-11 18:09] LABS: Erythrocyte Sedimentation Rate 38 mm/hr (0-20)
[2022-07-11 18:11] LABS: Absolute Lymphocyte Count 2.31 X10^3/uL (0.83-4.51); Absolute Neutrophil Count 8.4 X10^3/uL (2.0-7.7); Basophil# 0.04 X10^3/uL; Basophil% 0.3 % (0-1); Eosinophil# 0.31 X10^3/uL; Eosinophils% 2.5 % (0-5); Hematocrit 42.9 % (40-54); Hemoglobin 14.2 g/dL (13.0-16.5); Lymphocyte # 2.31 X10^3/ul (0.83-4.51); Lymphocyte % 18.6 % (19-41); Mean Corp Hgb Conc 33.1 g/dL (32-36); Mean Corpuscular Hgb 27.9 pg (27.0-32.0); Mean Corpuscular Volume 84.3 fL (80-94); Mean Platelet Vol. 9.8 fl (6.2-12.0); Monocyte# 1.27 X10^3/uL; Monocyte% 10.2 % (0-10); NRBC Flagged by Analyzer 0 % (0-5); Neutrophil # 8.41 X10^3/uL (2.7-7.7); Neutrophil % 67.6 % (47-70); Platelet Count 170 K/mm3 (150-450); RBC Distribution Width CV 15.2 % (11.6-14.6); RBC Distribution Width SD 46.2 fl (35.1-43.9); Red Blood Count 5.09 M/mm3 (4.6-6.2); White Blood Count 12.4 K/mm3 (4.4-11.0)
[2022-07-11 18:34] LABS: ALB/GLOB Ratio 0.7 RATIO (0.9-2.4); AST(SGOT) 21 U/L (15-37); Alanine Aminotransfer ALT/SGPT 42 U/L (16-61); Albumin, Serum 2.9 g/dL (3.2-5.0); Alkaline Phosphatase 61 U/L (45-117); Anion Gap 6 (5-15); BUN 10 mg/dL (7-18); BUN/Creat Ratio 11.1 RATIO (10-20); CPK Total, Creatine Kinase 36 U/L (39-308); Calcium,Total 9.3 mg/dL (8.5-10.1); Chloride 102 mmol/L (98-107); EST Glomerular Filtration Rate 87 mL/min (>60); Est Glom Filt Rate - Afr Amer 105 mL/min (>60); Globulin 4.1 g/dL (2.2-4.2); Glucose 117 mg/dL (74-106); Potassium 4.3 mmol/L (3.5-5.1); Sodium Level 135 mmol/L (136-145)
== END | disposition home or self-care (01) ==
LOC: LAB 17:35
PROVIDERS: Visit Provider Family Medicine
DX: M35.3 Polymyalgia rheumatica (principal)
CPT/HCPCS: 36415; 80053; 82550; 85025; 85652; 86140

== ENCOUNTER 2022-09-05 11:07 | Inpatient (IN) | payer MEDICARE, SELFPAY ==
[2022-09-05] VITALS (17 sets, daily range): BP systolic 95–124; BP diastolic 56–76; PULSE 66–90; RESP 14–20; TEMP 36.9–37.7; O2SAT 87–97; BMI 26.4; BMI 25.1
--- NOTE | 2022-09-05 11:31 | EDS_ITS ---
HPI <ÁLVARO Jacobs - Last Filed: 09/05/22 16:50> History of Present Illness Chief Complaint: Shortness of Breath Narrative Narrative: Patient presenting today with shortness of breath that he has had for the past week. He has had a productive cough as well. He states that he has felt very weak and also notices he gets dizzy upon standing. He has not been eating as much as usual. He has a history of COPD and only uses oxygen at home while exercising ans sleeping, not at rest. He denies any chest pain, abdominal pain, nausea, and vomiting. 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 Myocardial infarct On home oxygen therapy RENITA (obstructive sleep apnea) Pulmonary nodules Skin cancer of face Home Medications albuterol sulfate 90 mcg/actuation aerosol inhaler (Ventolin HFA) 2 puff inhalation Q4H PRN SHORTNESS OF BREATH 12/24/17 [History Last Taken Unknown] amlodipine 5 mg tablet (Norvasc) 5 mg PO DAILY BLOOD PRESSURE 12/24/17 [History Last Taken 09/04/22] budesonide-formoterol HFA 160 mcg-4.5 mcg/actuation aerosol inhaler (Symbicort) 2 puff IH BID COPD 12/24/17 [History Last Taken 09/04/22] carvedilol 25 mg tablet (Coreg) 37.5 mg PO BID BLOOD PRESSURE 12/24/17 [History Last Taken 09/04/22] fish oil-dha-epa 1,200 mg-144 mg-216 mg capsule 1,200 mg PO DAILY SUPPLEMENT 12/24/17 [History Last Taken 09/04/22] guaifenesin 400 mg tablet (Chest Congestion Relief) 400 mg PO DAILY CONGESTION 12/24/17 [History Last Taken 09/04/22] lisinopril 10 mg tablet (Zestril) 10 mg PO DAILY BLOOD PRESSURE 12/24/17 [History Last Taken 03/05/19] csubcupm-dxs-phqky acid 0.4 mg-lycopene 300 mcg-lutein 250 mcg tablet (ABC Plus) 1 ea PO DAILY SUPPLEMENT 12/24/17 [History Last Taken 09/04/22] tiotropium bromide 18 mcg capsule with inhalation device (Spiriva with HandiHaler) 2 puff inhalation DAILY COPD 12/24/17 [History Last Taken 09/04/22] rosuvastatin 40 mg tablet 20 mg PO QHS CHOLESTEROL 12/05/18 [History Last Taken 09/04/22] albuterol sulfate 2.5 mg/3 mL (0.083 %) solution for nebulization 2.5 mg inhalation Q6H PRN COPD 03/05/19 [History Last Taken 09/04/22] alendronate 70 mg tablet 70 mg PO [facility] 03/05/19 [History Last Taken 09/01/22] cholecalciferol (vitamin D3) 50 mcg (2,000 unit) capsule 2,000 unit PO DAILY SUPPLEMENT 03/05/19 [History Last Taken 09/04/22] cyanocobalamin (vitamin B-12) 1,000 mcg tablet 1,000 mcg PO DAILY SUPPLEMENT 03/05/19 [History Last Taken 09/04/22] omeprazole 20 mg capsule,delayed release 20 mg PO DAILY GERD 03/05/19 [History Last Taken 09/04/22] clopidogrel 75 mg tablet 75 mg PO DAILY BLOOD THINNER 09/05/22 [History Last Taken 09/04/22] prednisone 10 mg tablet See Taper PO DAILY STEROID 09/05/22 [History Last Taken 09/04/22] Allergy/AdvReac Type Severity Reaction Status Date / Time No Known Allergies Allergy Verified 09/05/22 11:08 Surgical History (Updated 09/05/22 @ 16:20 by Nila Woodward) H/O hernia repair History of coronary artery stent placement Stented coronary artery Social History Smoking Status: Former smoker ROS <ÁLVARO Jacobs - Last Filed: 09/05/22 16:50> ROS ED Constitutional Constitutional ED: Reports fever(s); Denies chills or sweats Eyes Eyes: Denies blurry vision or diplopia ENT ENT ED: Denies rhinorrhea or sore throat Cardiovascular Cardiovascular: Denies chest pain or palpitations Respiratory/Chest Respiratory/Chest: Reports cough, dyspnea and dyspnea on exertion Gastrointestinal Gastrointestinal: Denies abdominal pain, constipation, diarrhea, nausea or vomiting Genitourinary Genitourinary ED: Denies dysuria, hematuria or urinary urgency Musculoskeletal Musculoskeletal: Denies arthralgias, back pain, myalgias or neck pain Integumentary Denies abscess, Abrasions or rash Neurologic Neurologic: Denies confusion, dizziness or paresthesias Psychiatric Psychiatric: Denies anxiety, depression, suicidal ideation or suicidal thoughts EXAM <ÁLVARO Jacobs - Last Filed: 09/05/22 16:50> Physical Exam Const Vital Signs: 09/05/22 11:09 09/05/22 11:36 09/05/22 11:36 Temperature 99.8 F H Temperature Source Oral Pulse Rate 83 90 Respiratory Rate 18 18 Respiratory Effort Respiratory Depth Respiratory Pattern Normal Blood Pressure 124/66 H Blood Pressure Mean 85 Pulse Ox 92 91 Oxygen Delivery Method Nasal Cannula Nasal Cannula Oxygen Flow Rate (L/min) 3 09/05/22 11:45 09/05/22 13:45 09/05/22 13:40 Temperature 98.5 F Temperature Source Oral Pulse Rate 76 Respiratory Rate 18 Respiratory Effort Normal Non-Labored Respiratory Depth Normal Respiratory Pattern Normal Blood Pressure 95/56 L Blood Pressure Mean 69 Pulse Ox 92 87 Oxygen Delivery Method Nasal Cannula Nasal Cannula Nasal Cannula Oxygen Flow Rate (L/min) 4 2 09/05/22 14:37 Temperature 100 F H Temperature Source Temporal Pulse Rate 76 Respiratory Rate 18 Respiratory Effort Respiratory Depth Respiratory Pattern Blood Pressure 95/56 L Blood Pressure Mean 69 Pulse Ox 91 Oxygen Delivery Method Nasal Cannula Oxygen Flow Rate (L/min) Positive well nourished, well developed and no apparent distress General Appearance ED: well developed HEENT Reports normocephalic and head/scalp atraumatic Mouth ED: Yes moist mucous membranes normal Eyes PERRL and EOMs intact bilaterally Neck full ROM and supple Chest Wall inspection of chest normal Resp Resp Narrative: Diminished lung sounds bilaterally, rhonchi at the bases. Cardio regular rate and regular rhythm GI soft to palpation, non-tender, non-distended and no masses Back/Spine normal ROM and normal to inspection Extremity normal to inspection and full ROM Neuro oriented x3, CN's II-XII intact bilaterally, moves all extremities, no focal motor deficits and no sensory deficits noted Sensorium / Orientation: awake and alert Psych mental status grossly normal and thought process normal Skin no rashes or lesions noted and no wounds <Dr. Raúl Flores MD - Last Filed: 09/05/22 18:25> Physical Exam Const Vital Signs: 09/05/22 11:09 09/05/22 11:36 09/05/22 11:36 Temperature 99.8 F H Temperature Source Oral Pulse Rate 83 90 Respiratory Rate 18 18 Respiratory Effort Respiratory Depth Respiratory Pattern Normal Blood Pressure 124/66 H Blood Pressure Mean 85 Pulse Ox 92 91 Oxygen Delivery Method Nasal Cannula Nasal Cannula Oxygen Flow Rate (L/min) 3 09/05/22 11:45 09/05/22 13:45 09/05/22 13:40 Temperature 98.5 F Temperature Source Oral Pulse Rate 76 Respiratory Rate 18 Respiratory Effort Normal Non-Labored Respiratory Depth Normal Respiratory Pattern Normal Blood Pressure 95/56 L Blood Pressure Mean 69 Pulse Ox 92 87 Oxygen Delivery Method Nasal Cannula Nasal Cannula Nasal Cannula Oxygen Flow Rate (L/min) 4 2 09/05/22 14:37 Temperature 100 F H Temperature Source Temporal Pulse Rate 76 Respiratory Rate 18 Respiratory Effort Respiratory Depth Respiratory Pattern Blood Pressure 95/56 L Blood Pressure Mean 69 Pulse Ox 91 Oxygen Delivery Method Nasal Cannula Oxygen Flow Rate (L/min) [facility] <ÁLVARO Jacobs - Last Filed: 09/05/22 16:50> [facility] Narrative Medical decision making narrative: Patient presenting today with shortness of breath that he has had for the past week, productive cough, and weakness. Patient's called 911 because she did not feel it was safe for patient to transport himself. In the squad, he was 87% on room air and had a temperature of 102.1 Fahrenheit. He has been given Tylenol here, DuoNeb breathing treatment, and labs and chest x-ray will be obtained to rule out pneumonia, flu, COVID. COVID is positive. Patient has been given IV fluids and Decadron. Patient was at 87% on 2 L and was increased to 4 L where he remained around 92% before being brought down to 3 L. Chest x- ray does not show any pneumonia. BNP is WNL. Patient discussed patient with the hospitalist in regards to admission for his weakness, COVID, shortness of breath, and hypoxia and they agree that patient would benefit from admission. Patient is comfortable with plan. He will be admitted to the hospital in stable condition. Lab Data Attestation: I reviewed the patient's lab results. Lab results narrative: CBC shows no leukocytosis or anemia, BMP shows potassium 3.4, sodium 135, no HARDIK, BNP WNL Labs: Laboratory Results - last 24 hr 09/05/22 09/05/22 09/05/22 11:35 11:35 11:35 WBC 8.4 RBC 4.68 Hgb 13.5 Hct 40.3 MCV 86.1 MCH 28.8 MCHC 33.5 RDW Std Deviation 55.8 H RDW Coeff of Min 17.7 H Plt Count 145 L MPV 10.2 Immature Gran % (Auto) 0.800 Neut % (Auto) 65.6 Lymph % (Auto) 23.5 [place] % (Auto) 7.8 Eos % (Auto) 2.1 Baso % (Auto) 0.2 Absolute Neuts (auto) 5.5 Absolute Lymphs (auto) 1.98 Nucleated RBC % 0 Sodium 135 L Potassium 3.4 L Chloride 101 Carbon Dioxide 25.0 Anion Gap 9 BUN 17 Creatinine 0.87 Estim Creat Clear Calc 76.81 Est GFR (MDRD) Af Amer 109 Est GFR (MDRD) Non-Af 90 BUN/Creatinine Ratio 19.5 Glucose 93 Calcium 8.3 L B-Natriuretic Peptide 78.2 Radiography Chest X-Ray - ED: Read by ED Physician and Read by Radiologist Diagnostic Testing: Clinical Impression(s) from Imaging Studies Chest X-Ray 09/05/22 11:47 IMPRESSION: Lungs are hyperexpanded with emphysematous blebs, interstitial edema has developed since the previous study, follow-up recommended to assure resolution Electronically Signed: John Garvin MD at 12:03 EDT , EKG Initial EKG: Comments: 85 bpm, sinus rhythm with occasional PVCs, no ST elevation. Reviewed and interpreted by attending ED physician. <Dr. Raúl Flores MD - Last Filed: 09/05/22 18:25> [facility] Lab Data Labs: Laboratory Results - last 24 hr 0309/05/22 09/05/22 11:35 11:35 11:35 WBC 8.4 RBC 4.68 Hgb 13.5 Hct 40.3 MCV 86.1 MCH 28.8 MCHC 33.5 RDW Std Deviation 55.8 H RDW Coeff of Min 17.7 H Plt Count 145 L MPV 10.2 Immature Gran % (Auto) 0.800 Neut % (Auto) 65.6 Lymph % (Auto) 23.5 [place] % (Auto) 7.8 Eos % (Auto) 2.1 Baso % (Auto) 0.2 Absolute Neuts (auto) 5.5 Absolute Lymphs (auto) 1.98 Nucleated RBC % 0 Sodium 135 L Potassium 3.4 L Chloride 101 Carbon Dioxide 25.0 Anion Gap 9 BUN 17 Creatinine 0.87 Estim Creat Clear Calc 76.81 Est GFR (MDRD) Af Amer 109 Est GFR (MDRD) Non-Af 90 BUN/Creatinine Ratio 19.5 Glucose 93 Calcium 8.3 L B-Natriuretic Peptide 78.2 Radiography Diagnostic Testing: Clinical Impression(s) from Imaging Studies Chest X-Ray 09/05/22 11:47 IMPRESSION: Lungs are hyperexpanded with emphysematous blebs, interstitial edema has developed since the previous study, follow-up recommended to assure resolution Electronically Signed: John Garvin MD at 12:03 EDT Reading Location ID and State: [facility] / [place] , Service support , Management Discussion w/another healthcare provider: Hospitalist Treatment and Re-Evaluation :: I have personally performed a face to face assessment of the patient and have reviewed the STEVE Note. I performed a substantive portion of the visit including all aspects of the following. My anna findings include: History: Patient presents with generalized weakness decreased appetite and dyspnea on exertion. He thinks this started on Friday as he was finishing [facility] some [facility]. He does have COPD. He is on oxygen at night and when he exercises but not normally during the day. His noticed that he is got decreased energy. He gets very weak walking from room to room. He denies chest pain. He is coughing but not bringing up any sputum. He was wheezing a lot more than his baseline. He is also on a long-term prednisone taper for what he describes as rheumatoid arthritis. They think he is down to 9 mg a day now. Exam: Patient awake alert and appropriate but he does look tired. HEENT shows some moist mucous membranes. No JVD is seen. Breath sounds I listen after he had a DuoNeb. I am not hearing any wheezing now. He has a few coarse breath sounds but very minimal. No pain with a deep breath. Heart is regular. Rates about 90. Abdomen is soft nontender. Extremities show no notable edema or asymmetry or tenderness. Neurologically is awake alert and appropriate. Medical Decision Making: Patient was treated here. DuoNeb helped the wheezing that he had. But he still desaturates relatively easily. Patient will be admitted. Discharge Plan Dx/Rx/DC Orders Clinical Impression: COVID-19, COPD (chronic obstructive pulmonary disease), Hypoxia, SOB (shortness of breath) Disposition Disposition: Acute Care Hospital [facility] Discharge Date/Time: 09/05/22 16:30
[2022-09-05] MEDS: Ipratropium/Albuterol Sulfate 3 ML AMPUL.NEB INHALATION ×3 (11:34→23:57)
[2022-09-05] MEDS: Acetaminophen 325 MG Tablet 650 MG PO (11:46)
--- NOTE | 2022-09-05 11:47 | RAD_ITS ---
STUDY: X-RAY CHEST REASON FOR EXAM: Male, 77 years old. SOB TECHNIQUE: PA and lateral views of the chest. COMPARISON: 12/05/2018 FINDINGS: EKG leads overlie the chest Lungs are mildly hyperexpanded with chronic interstitial changes and superimposed interstitial edema having developed since the previous study. No organized infiltrate or effusion. Normal size heart. Normal mediastinum and philomena. Normal visualized pulmonary arteries. Normal visualized aortic arch and descending thoracic aorta. There are diffuse degenerative changes of the visualized thoracic spine. Normal visualized ribs, clavicles, and shoulders. There is no demonstrated abnormality of the visualized soft tissue structures of the upper abdomen. RAD/Chest PA and Lateral IMPRESSION: Lungs are hyperexpanded with emphysematous blebs, interstitial edema has developed since the previous study, follow-up recommended to assure resolution Electronically Signed: John Garvin MD at 12:03 EDT ,
[2022-09-05 11:48] LABS: Absolute Lymphocyte Count 1.98 X10^3/uL (0.83-4.51); Absolute Neutrophil Count 5.5 X10^3/uL (2.0-7.7); Basophil# 0.02 X10^3/uL; Basophil% 0.2 % (0-1); Eosinophil# 0.18 X10^3/uL; Eosinophils% 2.1 % (0-5); Hematocrit 40.3 % (40-54); Hemoglobin 13.5 g/dL (13.0-16.5); Lymphocyte # 1.98 X10^3/ul (0.83-4.51); Lymphocyte % 23.5 % (19-41); Mean Corp Hgb Conc 33.5 g/dL (32-36); Mean Corpuscular Hgb 28.8 pg (27.0-32.0); Mean Corpuscular Volume 86.1 fL (80-94); Mean Platelet Vol. 10.2 fl (6.2-12.0); Monocyte# 0.66 X10^3/uL; Monocyte% 7.8 % (0-10); NRBC Flagged by Analyzer 0 % (0-5); Neutrophil # 5.51 X10^3/uL (2.7-7.7); Neutrophil % 65.6 % (47-70); Platelet Count 145 K/mm3 (150-450); RBC Distribution Width CV 17.7 % (11.6-14.6); RBC Distribution Width SD 55.8 fl (35.1-43.9); Red Blood Count 4.68 M/mm3 (4.6-6.2); White Blood Count 8.4 K/mm3 (4.4-11.0)
[2022-09-05 12:07] LABS: Anion Gap 9 (5-15); BUN 17 mg/dL (7-18); BUN/Creat Ratio 19.5 RATIO (10-20); Calcium,Total 8.3 mg/dL (8.5-10.1); Chloride 101 mmol/L (98-107); Creatinine, Serum 0.87 mg/dL (0.70-1.30); EST Glomerular Filtration Rate 90 mL/min (>60); Est Glom Filt Rate - Afr Amer 109 mL/min (>60); Estimated Creatinine Clearance 76.81 ml/min; Glucose 93 mg/dL (74-106); Potassium 3.4 mmol/L (3.5-5.1); Sodium Level 135 mmol/L (136-145)
--- NOTE | 2022-09-05 13:17 | EKG12_ITS ---
Test Reason : SOB Blood Pressure : / mmHG Vent. Rate : 085 BPM Atrial Rate : 085 BPM P-R Int : 174 ms QRS Dur : 102 ms QT Int : 372 ms P-R-T Axes : 052 -73 069 degrees QTc Int : 442 ms Sinus rhythm with occasional Premature ventricular complexes Left axis deviation Low voltage QRS Incomplete right bundle branch block Inferior infarct , age undetermined Cannot rule out Anterior infarct , age undetermined Abnormal ECG Confirmed by CARMINE ALARCON, KADY ([id number]), publications editor ADELAIDE PARKS ([id number]) on 09/09/2022 12:11:00 P M Referred By: Confirmed By:DUSTIN LOU MD
[2022-09-05 13:31] LABS: BNP,B-Type NATRIURETIC PEPTIDE 78.2 pg/mL (0-100)
--- NOTE | 2022-09-05 13:50 | ED.RN ---
PA NOTIFIED SPO2=87% ON 2L NC. INCREASED TO 4LNC TO GET SPO2=92%. BP=95/56.
[2022-09-05] MEDS: 0.9% Normal Saline 1,000 ML 999 ML IV (14:17)
[2022-09-05] MEDS: dexAMETHasone 10 MG/ML Vial 6 MG IV (14:18)
--- NOTE | 2022-09-05 14:54 | HP.PCM.HOS_ITS ---
HPI - General General Date of Admission: 09/05/22 Date of Service: 09/05/22 Chief Complaint: SOB HPI Narrative Blade Barnes is a 77-year-old male with a history of COPD on nighttime O2, hypertension, GERD who presented to [facility] 09/05/2022 with shortness of breath x1 week and general weakness. He was COVID-positive and 86% on room air and is requiring 4 L to maintain 94%. On presentation temperature 99.8, BP 124/68, 91% on 3 L, respiratory rate 18. Chest x-ray demonstrated hyperexpanded lungs with emphysematous blebs with some interstitial edema. CBC unremarkable aside for a platelet count mildly low at 145, BMP demonstrated sodium of 135 and potassium of 3.4. Hospitalist consulted for admission. Laurence ent seen with family member at bedside they report it has been about 3 to 4 days since he is really been having significant shortness of breath and malaise and some generalized weakness. Usually only uses 2 L of O2 at bedtime with his CPAP but here was hypoxic. Has been a little bit lightheaded when he has been standing up at home but laying down is not having any lightheadedness or confusion. Does have a cough but reports it is chronic, says it is more productive however. No chest pain. Has had poor p.o. 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 RENITA (obstructive sleep apnea) Pulmonary nodules Skin cancer of face Home Medications albuterol sulfate 90 mcg/actuation aerosol inhaler (Ventolin HFA) 2 puff inhalation Q4H PRN PRN Sob &/Or Wheezing 12/24/17 [History Last Taken Unknown] amlodipine 5 mg tablet (Norvasc) 5 mg PO DAILY blood pressure 12/24/17 [History Last Taken 03/04/19] budesonide-formoterol HFA 160 mcg-4.5 mcg/actuation aerosol inhaler (Symbicort) 2 puff IH BID breathing 12/24/17 [History Last Taken 03/05/19] carvedilol 25 mg tablet (Coreg) 37.5 mg PO BID blood pressure 12/24/17 [History Last Taken 03/05/19] fish oil-dha-epa 1,200 mg-144 mg-216 mg capsule 1,200 mg PO DAILY supplement 12/24/17 [History Last Taken 03/04/19] guaifenesin 400 mg tablet (Chest Congestion Relief) 400 mg PO Q4H PRN PRN Congestion 12/24/17 [History Last Taken 03/04/19] lisinopril 10 mg tablet (Zestril) 10 mg PO DAILY blood pressure 12/24/17 [History Last Taken 03/05/19] wyocxxyd-voe-yljja acid 0.4 mg-lycopene 300 mcg-lutein 250 mcg tablet (ABC Plus) 1 ea PO DAILY vitamin 12/24/17 [History Last Taken 03/04/19] tiotropium bromide 18 mcg capsule with inhalation device (Spiriva with HandiHaler) 2 puff inhalation DAILY breathing 12/24/17 [History Last Taken 03/04/19] rosuvastatin 40 mg tablet 20 mg PO DAILY cholesterol 12/05/18 [History Last Taken 03/04/19] albuterol sulfate 2.5 mg/3 mL (0.083 %) solution for nebulization 2.5 mg inhalation Q6HWA.RT breathing 03/05/19 [History Last Taken 03/04/19] alendronate 70 mg tablet 70 mg PO [facility] 03/05/19 [History Last Taken 02/28/19] aspirin 81 mg tablet,delayed release 81 mg PO DAILY@0800 heart health 03/05/19 [History Last Taken 03/05/19] cholecalciferol (vitamin D3) 50 mcg (2,000 unit) capsule 2,000 unit PO DAILY vitamin 03/05/19 [History Last Taken 03/04/19] cyanocobalamin (vitamin B-12) 1,000 mcg tablet 1,000 mcg PO DAILY vitamin [History Last Taken 03/04/19] loratadine 10 mg tablet 10 mg PO QHS allergies 03/05/19 [History Last Taken 03/04/19] omeprazole 20 mg capsule,delayed release 20 mg PO DAILY gerd 03/05/19 [History Last Taken 03/05/19] clopidogrel 75 mg tablet 75 mg PO DAILY #30 tabs 03/06/19 [Rx Last Taken Unkn own] Oxygen, Home [Home Oxygen] 2 lpm 06/08/19 [History Last Taken Unknown] fluticasone propionate 50 mcg/actuation nasal spray,suspension 1 spray NASAL BID 06/08/19 [History Last Taken Unknown] loratadine 10 mg tablet 10 mg PO 06/08/19 [History Last Taken Unknown] prednisone 10 mg tablet See Taper PO DAILY #30 tabs 06/18/22 [Rx Last Taken Unknown] Allergy/AdvReac Type Severity Reaction Status Date / Time No Known Allergies Allergy Verified 09/05/22 11:08 Surgical History H/O hernia repair Stented coronary artery Social History Smoking Status: Former smoker ROS ROS Narrative General: Had fever at home HENT: Denies headache, denies stuffy nose, denies sore throat EYES: Denies changes in vision Resp: Increased cough and shortness of breath Cardiac: Denies chest pain GI: Denies abdominal pain, denies changes in bowel, denies nausea/vomiting : Denies changes in urination Extremity: Denies swelling MSK: Generalized weakness Neuro: Denies any numbness/tingling Heme: Denies any bleeding or bruising Skin: Denies rashes Psychiatric: No complaints voiced Vital Signs Vital Signs Vital Signs: 09/05/22 11:09 09/05/22 11:36 09/05/22 11:36 Temperature 99.8 F H Temperature Source Oral Pulse Rate 83 90 Respiratory Rate 18 18 Respiratory Effort Respiratory Depth Respiratory Pattern Normal Blood Pressure 124/66 H Blood Pressure Mean 85 Pulse Ox 92 91 Oxygen Delivery Method Nasal Cannula Nasal Cannula Oxygen Flow Rate (L/min) 3 09/05/22 11:45 09/05/22 13:45 09/05/22 13:40 Temperature 98.5 F Temperature Source Oral Pulse Rate 76 Respiratory Rate 18 Respiratory Effort Normal Non-Labored Respiratory Depth Normal Respiratory Pattern Normal Blood Pressure 95/56 L Blood Pressure Mean 69 Pulse Ox 92 87 Oxygen Delivery Method Nasal Cannula Nasal Cannula Nasal Cannula Oxygen Flow Rate (L/min) 4 2 09/05/22 14:37 Temperature 100 F H Temperature Source Temporal Pulse Rate 76 Respiratory Rate 18 Respiratory Effort Respiratory Depth Respiratory Pattern Blood Pressure 95/56 L Blood Pressure Mean 69 Pulse Ox 91 Oxygen Delivery Method Nasal Cannula Oxygen Flow Rate (L/min) Weight Weight: 88.3 kg Body Mass Index (BMI) 26.4 Physical Exam Narrative General: Alert, oriented, appears unwell HEENT: Atraumatic, normocephalic Eyes: Anicteric, normal conjunctiva, extraocular movements grossly intact Neck: Supple Respiratory: Normal respiratory effort but diffusely coarse Cardiovascular: Regular rate and rhythm GI: Soft, nontender, nondistended Extremities: No edema Musculoskeletal: Moving all extremities Neuro: No overt focal neurological deficits Skin: No rashes appreciated Psych: Cooperative Results Lab / Micro Data Result Diagrams: 09/05/22 11:35 09/05/22 11:35 Labs: Laboratory Results - last 24 hr 09/05/22 11:35: WBC 8.4, RBC 4.68, Hgb 13.5, Hct 40.3, MCV 86.1, MCH 28.8, MCHC 33.5, RDW Std Deviation 55.8 H, RDW Coeff of Min 17.7 H, Plt Count 145 L, MPV 10 .2, Immature Gran % (Auto) 0.800, Neut % (Auto) 65.6, Lymph % (Auto) 23.5, [place] % (Auto) 7.8, Eos % (Auto) 2.1, Baso % (Auto) 0.2, Absolute Neuts (auto) 5.5, Absolute Lymphs (auto) 1.98, Nucleated RBC % 0 09/05/22 11:35: Sodium 135 L, Potassium 3.4 L, Chloride 101, Carbon Dioxide 25.0, Anion Gap 9, BUN 17, Creatinine 0.87, Estim Creat Clear Calc 76.81, Est GFR (MDRD) Af Amer 109, Est GFR (MDRD) Non-Af 90, BUN/Creatinine Ratio 19.5, Glucose 93, Calcium 8.3 L 09/05/22 11:35: B-Natriuretic Peptide 78.2 Micro: Microbiology 09/05/22 11:30 Nasal Secretion SARS-CoV-2 & FLU Antigen (Rapid) - Final SARS-CoV-2 (COVID 19) Radiology Impression Chest X-Ray 09/05/22 11:47 IMPRESSION: Lungs are hyperexpanded with emphysematous blebs, interstitial edema has developed since the previous study, follow-up recommended to assure resolution Electronically Signed: John Garvin MD at 12:03 EDT , Assessment & Plan Assessment/Plan (1) COPD (chronic obstructive pulmonary disease): (2) COVID-19: PLAN: Plan #Acute on chronic hypoxia secondary to COVID-19 infection on chronic COPD and RENITA -Dexamethasone, remdesivir -We will obtain COVID labs, if CRP elevated and patient's oxygen requirements escalate will likely need barcitinib -Uses a CPAP nightly, may need BiPAP even before bedtime if work of breathing increases -Nebs, albuterol as needed -Mucinex -Incentive spirometry -Continue O2 and supportive care #History of CVA -2019 had acute small left frontal ischemic stroke -Continue aspirin, statin, Plavix #Hypertension -BP somewhat low, will hold #DVT ppx: Lovenox subcu Cherri Morel MD Time spent in the patient's overall evaluation,decision-making process, review of diagnostic data, adjustment of management, discussion with other providers, nursing nursing and ancillary staff involved in patient's care documentation, 60 minutes Charges/Coding Visit Charges Inpatient E&M: 80478 Init Hosp L2
[2022-09-05 18:35] LABS: Lactic Acid 1.6 mmol/L (0.4-1.9)
[2022-09-05 18:36] LABS: AST(SGOT) 45 U/L (15-37); Alanine Aminotransfer ALT/SGPT 36 U/L (16-61); Albumin, Serum 2.6 g/dL (3.2-5.0); Alkaline Phosphatase 40 U/L (45-117); Bilirubin, Direct 0.22 mg/dL (0.00-0.30); CPK Total, Creatine Kinase 212 U/L (39-308); LDH 334 U/L (87-241); Protein, Total 6.6 g/dL (6.4-8.2)
[2022-09-05 18:58] LABS: International Normalized Ratio 1.1; Prothrombin Time (Protime)PT. 13.4 SECONDS (11.7-14.9)
[2022-09-05 18:59] LABS: Fibrinogen 601 mg/dl (203-444)
[2022-09-05 19:00] LABS: Procalcitonin 0.24 ng/mL (0.00-0.09)
[2022-09-05 19:04] LABS: D-Dimer Quantitative (DVT/PE) 1.66 FEU/ug/m (0.27-0.49)
--- NOTE | 2022-09-05 19:37 | CT_ITS ---
STUDY: CTA Chest WO/W Contrast Injection 09/05/2022 8:34 PM REASON FOR EXAM: Male, 77 years old History: r/o PE, elevated ddimer, hypoxia, borderline BP Other, COUGH,SOB,RT BREAST BRUISING POST INJURY HX:CAD,COPD,HLD,HTN,EMPHYSEMA,SKIN CANCER,PT HAS HEART STENT TECHNIQUE: The examination was performed with the intravenous administration of IV 100mL Isovue-370 contrast material. Post-processing of the angiographic images was performed, with axial imaging and 3D reconstruction. MIPS images were obtained. Individualized dose optimization techniques were used for this CT. COMPARISON: None. FINDINGS: There are degenerative changes of the shoulders. There is no pneumothorax. There is no demonstrated pleural abnormality. Left calcified pleural plaques. There are scattered blebs and bullae. This can be seen in pulmonary emphysema. There are calcifications of the coronary arteries. Normal mediastinum. Normal hilar regions. Normal pulmonary arteries. There is atherosclerotic calcification of the aortic arch with tortuosity and elongation of the aortic arch and descending thoracic aorta. There are multi-level degenerative changes of the thoracic spine. There are no acute findings of the upper abdomen. CT/CTA Chest W/WO Contrast IMPRESSION: No demonstrated pulmonary embolism or arterial dissection. There are no acute findings. Electronically Signed: Chester Weaver MD at 20:36 EDT ,
[2022-09-05] MEDS: Potassium Chloride Oral Tablet 20 MEQ 40 MEQ PO (21:18)
[2022-09-05] MEDS: guaiFENesin 1,200 MG Tablet 1200 MG PO (21:18)
[2022-09-05] MEDS: Rosuvastatin 20 MG Tablet PO (21:18)
[2022-09-06] VITALS (15 sets, daily range): BP systolic 107–123; BP diastolic 59–66; PULSE 61–115; RESP 18–22; TEMP 36.2–36.8; O2SAT 93–98; BMI 25.0
[2022-09-06 06:51] LABS: Absolute Lymphocyte Count 1.06 X10^3/uL (0.83-4.51); Absolute Neutrophil Count 5.2 X10^3/uL (2.0-7.7); Hematocrit 39.6 % (40-54); Hemoglobin 13.2 g/dL (13.0-16.5); Lymphocyte # 1.06 X10^3/ul (0.83-4.51); Lymphocyte % 15.6 % (19-41); Mean Corp Hgb Conc 33.3 g/dL (32-36); Mean Corpuscular Hgb 28.5 pg (27.0-32.0); Mean Corpuscular Volume 85.5 fL (80-94); Mean Platelet Vol. 9.4 fl (6.2-12.0); Monocyte% 7.4 % (0-10); NRBC Flagged by Analyzer 0 % (0-5); Neutrophil # 5.17 X10^3/uL (2.7-7.7); Neutrophil % 76.3 % (47-70); Platelet Count 148 K/mm3 (150-450); RBC Distribution Width CV 17.5 % (11.6-14.6); RBC Distribution Width SD 55.2 fl (35.1-43.9); Red Blood Count 4.63 M/mm3 (4.6-6.2); White Blood Count 6.8 K/mm3 (4.4-11.0)
[2022-09-06 07:31] LABS: ALB/GLOB Ratio 0.6 RATIO (0.9-2.4); AST(SGOT) 38 U/L (15-37); Alanine Aminotransfer ALT/SGPT 37 U/L (16-61); Albumin, Serum 2.4 g/dL (3.2-5.0); Alkaline Phosphatase 39 U/L (45-117); Anion Gap 7 (5-15); BUN 18 mg/dL (7-18); BUN/Creat Ratio 23.8 RATIO (10-20); Calcium,Total 8.5 mg/dL (8.5-10.1); Chloride 104 mmol/L (98-107); Creatinine, Serum 0.76 mg/dL (0.70-1.30); EST Glomerular Filtration Rate 106 mL/min (>60); Est Glom Filt Rate - Afr Amer 129 mL/min (>60); Estimated Creatinine Clearance 66.82 ml/min; Globulin 3.7 g/dL (2.2-4.2); Glucose 140 mg/dL (74-106); Potassium 4.3 mmol/L (3.5-5.1); Protein, Total 6.1 g/dL (6.4-8.2); Sodium Level 137 mmol/L (136-145)
[2022-09-06] MEDS: Ipratropium/Albuterol Sulfate 3 ML AMPUL.NEB INHALATION ×4 (07:44→20:21)
[2022-09-06] MEDS: Pantoprazole Sodium 20 MG Tablet PO (10:03)
[2022-09-06] MEDS: Enoxaparin 40 MG/0.4 ML Syringe SC (10:03)
[2022-09-06] MEDS: Potassium Chloride Oral Tablet 20 MEQ 40 MEQ PO (10:04)
[2022-09-06] MEDS: guaiFENesin 1,200 MG Tablet 1200 MG PO ×2 (10:04→22:37)
[2022-09-06] MEDS: Clopidogrel Bisulfate 75 MG Tablet PO (10:04)
[2022-09-06] MEDS: Furosemide 40 MG/4 ML Vial IV (10:04)
[2022-09-06] MEDS: dexAMETHasone 10 MG/ML Vial 6 MG IV (10:04)
--- NOTE | 2022-09-06 10:07 | PCM.PN.HOSP ---
Subjective Subjective Doing well, feels little bit better than when he came in. Maintaining his oxygen saturations on 4 to 6 L nasal cannula Objective Data Objective Data Vital Signs: Vital Signs Temp Pulse Resp BP Pulse Ox O2 Del Method O2 Flow Rate 98 F 73 18 123/66 H 98 Nasal Cannula 4 09/06/22 09:59 09/06/22 09:59 09/06/22 09:59 09/06/22 09:59 09/06/22 09:59 09/06/22 09:59 09/06/22 09:59 FiO2 35 09/06/22 03:40 Oxygen Flow Rate (L/min) 4 Oxygen Delivery Method Nasal Cannula Weight: 184 lb 11.958 oz Body Mass Index (BMI) 25.0 Intake & Output: Intake and Output for Last 24 Hours 09/05/22 09/06/22 09/07/22 03:59 03:59 03:59 Intake Total 2650 / 2650 Balance 2650 / 2650 Lab / Micro Data Result Diagrams: 09/06/22 06:35 09/06/22 06:35 Labs: Laboratory Results - last 24 hr 09/05/22 11:35: WBC 8.4, RBC 4.68, Hgb 13.5, Hct 40.3, MCV 86.1, MCH 28.8, MCHC 33.5, RDW Std Deviation 55.8 H, RDW Coeff of Min 17.7 H, Plt Count 145 L, MPV 10.2, Immature Gran % (Auto) 0.800, Neut % (Auto) 65.6, Lymph % (Auto) 23.5, Pennington % (Auto) 7.8, Eos % (Auto) 2.1, Baso % (Auto) 0.2, Absolute Neuts (auto) 5.5, Absolute Lymphs (auto) 1.98, Nucleated RBC % 0 09/05/22 11:35: Sodium 135 L, Potassium 3.4 L, Chloride 101, Carbon Dioxide 25.0, Anion Gap 9, BUN 17, Creatinine 0.87, Estim Creat Clear Calc 76.81, Est GFR (MDRD) Af Amer 109, Est GFR (MDRD) Non-Af 90, BUN/Creatinine Ratio 19.5, Glucose 93, Calcium 8.3 L 09/05/22 11:35: B-Natriuretic Peptide 78.2 09/05/22 18:00: PT 13.4, INR 1.1, Fibrinogen 601 H, D-Dimer Quant (PE/DVT) 1.66 H* 09/05/22 18:00: Total Bilirubin 0.80, Direct Bilirubin 0.22, AST 45 H, ALT 36, Alkaline Phosphatase 40 L, Lactate Dehydrogenase 334 H, Total Creatine Kinase 212, C-React Prot Ext Range 171.00 H, Total Protein 6.6, Albumin 2.6 L, Globulin 4.0 09/05/22 18:00: Lactic Acid 1.6 09/05/22 18:00: Procalcitonin 0.24 H 09/06/22 06:35: Sodium 137, Potassium 4.3, Chloride 104, Carbon Dioxide 26.0, Anion Gap 7, BUN 18, Creatinine 0.76, Estim Creat Clear Calc 66.82, Est GFR (MDRD) Af Amer 129, Est GFR (MDRD) Non-Af 106, BUN/Creatinine Ratio 23.8 H, Glucose 140 H, Calcium 8.5, Total Bilirubin 0.40, AST 38 H, ALT 37, Alkaline Phosphatase 39 L, Total Protein 6.1 L, Albumin 2.4 L, Globulin 3.7, Albumin/Globulin Ratio 0.6 L 09/06/22 06:35: WBC 6.8, RBC 4.63, Hgb 13.2, Hct 39.6 L, MCV 85.5, MCH 28.5, MCHC 33.3, RDW Std Deviation 55.2 H, RDW Coeff of Min 17.5 H, Plt Count 148 L, MPV 9.4, Immature Gran % (Auto) 0.700, Neut % (Auto) 76.3 H, Lymph % (Auto) 15.6 L, Pennington % (Auto) 7.4, Eos % (Auto) 0.0, Baso % (Auto) 0.0, Absolute Neuts (auto) 5.2, Absolute Lymphs (auto) 1.06, Nucleated RBC % 0 Micro: Microbiology 09/05/22 11:30 Nasal Secretion SARS-CoV-2 & FLU Antigen (Rapid) - Final SARS-CoV-2 (COVID 19) Radiography Diagnostic Testing: Radiology Impression Chest X-Ray 09/05/22 11:47 IMPRESSION: Lungs are hyperexpanded with emphysematous blebs, interstitial edema has developed since the previous study, follow-up recommended to assure resolution Electronically Signed: Jonh Garvin MD at 12:03 EDT , Chest CTA 09/05/22 19:37 IMPRESSION: No demonstrated pulmonary embolism or arterial dissection. There are no acute findings. Electronically Signed: Chester Weaver MD at 20:36 EDT , Physical Exam Narrative General: Alert, Oriented x3, Cooperative, No apparent distress HEENT: Atraumatic, PERRLA, EOMI, Normocephalic Oral: Moist Mucosa Neck: Supple, No JVD Lungs: Diminished, Normal air movement, rhonchi, No wheeze, No rales Cardiovascular: Regular rate, Regular Rhythm, Normal S1, Normal S2, No murmurs Abdomen: Soft, Non Tender, Non-Distended, No Hepato-splenomegaly Extremities: No edema, Capillary Refill Less than 3 Seconds Skin: No rashes, No breakdown Musculoskeletal: No Tenderness to Palpation of Joints or Extremities Neurological: Cranial nerves II-XII grossly intact, Motor Exam 5/5 strength throughout, Sensory exam intact to light touch and pain Psych/Mental Status: Normal Affect, Appropriate Assessment & Plan Assessment/Plan (1) COPD (chronic obstructive pulmonary disease): (2) COVID-19: PLAN: Plan 1. Acute on chronic hypoxic respiratory failure secondary to COVID-19 complicated by chronic COPD and RENITA with pulmonary edema ? Chest x-ray is consistent with interstitial edema CTA of the chest did not demonstrate a PE ? We will continue with as needed Lasix as well as Decadron and remdesivir ? Continue with BiPAP whenever he sleeps ? Continue with incentive spirometry ? He normally wears 2 L at night with his CPAP 2. History of CVA/HTN/HLD ? Blood pressures are stable, though low and he is on 37.5 mg of Coreg twice daily so we will continue to hold but can reach his normal ? Continue with aspirin, statin, Plavix DVT: Lovenox Charges/Coding Visit Charges Inpatient E&M: 74619 Subs Hosp L2
--- NOTE | 2022-09-06 12:45 | CASEMGMT ---
RN NEEL Face to Face with patient for initial transition planning/care coordination assessment. RN CM introduced self and role at [facility]. Patient lying in bed, alert and oriented. Patient willing to participate in assessment and is able to answer all questions appropriately. Care providers, pharmacy, and demographics verified. Patient wishes to discharge home, denies need for home health at this time. Patient states he has no further needs or concerns at this time. CM to follow for discharge planning needs that may arise. PCP: Leti Ayala [place] Specialists: none Preferred Pharmacy: [facility] Insurance: [employer] [facility] Prescription Benefit: [place] Living Will/HPOA: yes, Tierney Barnes LNOK: Living Arrangements: Patient lives with in a single story home with 2 steps to enter. Patient states he is independent at home. Transportation: self, DME/HHC: Patient has shower chair, raised toilet, cane, walker, grab bars, cpap, nebulizer, pulse ox and home oxygen [facility] at 2l[facility] at [facility] and 4 lpm with activity. No previous HHC or SNF. Patient aware to have family bring portable oxygen at discharge. Disposition Plan: Patient to discharge home with family support and follow-up plans in place. Rylee ROMAN, RN, CM
--- NOTE | 2022-09-06 13:26 | NURSING ---
Pt noted to be voiding in trash can. When asked why, pt stated that he had nowhere to void and that he has urgency from lasix. He also stated that he does not want to have a bm in trash can and wasn't sure why he was given a trash can beside his bed. This RN informed pt that he has a urinal at bedside for him to void in and he is not to be voiding or having bm in trash can and that trash can was placed beside bed for pt to hang urinal on so that it did not get spilled in his bed. pt is able to ambulate in room and to bathroom. Pt A&Ox3, verbalized understanding of urinal use.
[2022-09-06] MEDS: Rosuvastatin 20 MG Tablet PO (22:37)
[2022-09-07] VITALS (9 sets, daily range): BP systolic 121–124; BP diastolic 67–69; PULSE 64–86; RESP 18–20; TEMP 36.6–36.7; O2SAT 88–98; BMI 25.2
[2022-09-07] MEDS: Ipratropium/Albuterol Sulfate 3 ML AMPUL.NEB INHALATION ×3 (00:08→11:20)
--- NOTE | 2022-09-07 08:20 | CPS ---
PATIENT FOUND WITH OXYGEN OFF AT TIME OF VISIT. PATIENT STATED THAT HE DIDNT NEED OXYGEN BECAUSE HE IS GOING HOME TODAY.
[2022-09-07 08:38] LABS: Absolute Lymphocyte Count 1.48 X10^3/uL (0.83-4.51); Absolute Neutrophil Count 12.6 X10^3/uL (2.0-7.7); Basophil# 0.02 X10^3/uL; Basophil% 0.1 % (0-1); Hematocrit 37.6 % (40-54); Hemoglobin 12.6 g/dL (13.0-16.5); Lymphocyte # 1.48 X10^3/ul (0.83-4.51); Lymphocyte % 9.9 % (19-41); Mean Corp Hgb Conc 33.5 g/dL (32-36); Mean Corpuscular Hgb 28.5 pg (27.0-32.0); Mean Corpuscular Volume 85.1 fL (80-94); Monocyte# 0.78 X10^3/uL; Monocyte% 5.2 % (0-10); NRBC Flagged by Analyzer 0 % (0-5); Neutrophil # 12.56 X10^3/uL (2.7-7.7); Neutrophil % 84.1 % (47-70); Platelet Count 162 K/mm3 (150-450); RBC Distribution Width CV 17.5 % (11.6-14.6); RBC Distribution Width SD 54.4 fl (35.1-43.9); Red Blood Count 4.42 M/mm3 (4.6-6.2)
[2022-09-07 08:55] LABS: ALB/GLOB Ratio 0.7 RATIO (0.9-2.4); AST(SGOT) 42 U/L (15-37); Alanine Aminotransfer ALT/SGPT 39 U/L (16-61); Albumin, Serum 2.3 g/dL (3.2-5.0); Alkaline Phosphatase 52 U/L (45-117); Anion Gap 9 (5-15); BUN 20 mg/dL (7-18); BUN/Creat Ratio 29.6 RATIO (10-20); Calcium,Total 8.8 mg/dL (8.5-10.1); Chloride 104 mmol/L (98-107); Creatinine, Serum 0.68 mg/dL (0.70-1.30); EST Glomerular Filtration Rate 121 mL/min (>60); Est Glom Filt Rate - Afr Amer 146 mL/min (>60); Estimated Creatinine Clearance 66.82 ml/min; Globulin 3.4 g/dL (2.2-4.2); Glucose 135 mg/dL (74-106); Potassium 4.1 mmol/L (3.5-5.1); Protein, Total 5.7 g/dL (6.4-8.2); Sodium Level 138 mmol/L (136-145)
[2022-09-07] MEDS: Acetaminophen 325 MG Tablet 650 MG PO (09:30)
[2022-09-07] MEDS: Pantoprazole Sodium 20 MG Tablet PO (09:30)
[2022-09-07] MEDS: amLODIPine 5 MG Tablet PO (09:30)
[2022-09-07] MEDS: guaiFENesin 1,200 MG Tablet 1200 MG PO (09:30)
[2022-09-07] MEDS: Clopidogrel Bisulfate 75 MG Tablet PO (09:30)
[2022-09-07] MEDS: Enoxaparin 40 MG/0.4 ML Syringe SC (09:31)
[2022-09-07] MEDS: Aspirin 81 MG TAB.CHEW PO (09:31)
[2022-09-07] MEDS: dexAMETHasone 10 MG/ML Vial 6 MG IV (09:33)
--- NOTE | 2022-09-07 10:53 | DS.PCM_ITS ---
Providers Date of Admission: 09/05/22 Date of Discharge: 09/07/22 Primary Care Physician: Dr. Martin Ayala MD Reason For Visit: COVID, HYPOXIA, SHORTNESS OF BREATH, WEAKNESS Diagnosis Discharge Diagnosis (1) COPD (chronic obstructive pulmonary disease): Status: Chronic Code(s): J44.9 - Chronic obstructive pulmonary disease, unspecified (2) COVID-19: Status: Acute Code(s): U07.1 - COVID-19 Medications at Discharge Home Medications albuterol sulfate 90 mcg/actuation aerosol inhaler (Ventolin HFA) 2 puff inhalation Q4H PRN SHORTNESS OF BREATH 12/24/17 amlodipine 5 mg tablet (Norvasc) 5 mg PO DAILY BLOOD PRESSURE 12/24/17 budesonide-formoterol HFA 160 mcg-4.5 mcg/actuation aerosol inhaler (Symbicort) 2 puff IH BID COPD 12/24/17 carvedilol 25 mg tablet (Coreg) 37.5 mg PO BID BLOOD PRESSURE 12/24/17 fish oil-dha-epa 1,200 mg-144 mg-216 mg capsule 1,200 mg PO DAILY SUPPLEMENT 12/24/17 guaifenesin 400 mg tablet (Chest Congestion Relief) 400 mg PO DAILY CONGESTION 12/24/17 lisinopril 10 mg tablet (Zestril) 10 mg PO DAILY BLOOD PRESSURE 12/24/17 prjiunqg-[id number]-[id number] acid 0.4 mg-lycopene 300 mcg-lutein 250 mcg tablet (ABC Plus) 1 ea PO DAILY SUPPLEMENT 12/24/17 tiotropium bromide 18 mcg capsule with inhalation device (Spiriva with HandiHaler) 2 puff inhalation DAILY COPD 12/24/17 rosuvastatin 40 mg tablet 20 mg PO QHS CHOLESTEROL 12/05/18 albuterol sulfate 2.5 mg/3 mL (0.083 %) solution for nebulization 2.5 mg inhalation Q6H PRN COPD 03/05/19 alendronate 70 mg tablet 70 mg PO BONE HEALTH 03/05/19 cholecalciferol (vitamin D3) 50 mcg (2,000 unit) capsule 2,000 unit PO DAILY SUPPLEMENT 03/05/19 cyanocobalamin (vitamin B-12) 1,000 mcg tablet 1,000 mcg PO DAILY SUPPLEMENT 03/05/19 omeprazole 20 mg capsule,delayed release 20 mg PO DAILY GERD 03/05/19 clopidogrel 75 mg tablet 75 mg PO DAILY BLOOD THINNER 09/05/22 dexamethasone 6 mg tablet 6 mg PO DAILY #8 tabs 09/07/22 Hospital Course Operations None Procedures None Summary of Care Provided Minutes Spent on Discharge: 50 Hospital Course: Patient is a 77-year-old male with a past medical history as outlined who was admitted to the ED on 09/05/2022 with a complaint of shortness of breath that been going on for about a week as well as generalized weakness. He had tested positive for COVID on outpatient basis and on arrival was saturating at 86% on room air and required 4 L of oxygen to go up to 94%. Chest x-ray showed evidence of emphysema with some interstitial edema. CBC was unremarkable for platelets of 145 and BMP was significant for potassium of 3.4. Patient usually uses 2 L of oxygen at home but with exertion he said he went up to 4 L. Was admitted and managed for hypoxia in the setting of chronic respiratory failure due to COVID-19 infection. He was started on dexamethasone and remdesivir. His shortness of breath gradually improved and he was actually weaned off of oxygen to room air. He felt much better and requested to be discharged home on 09/07/2022. He had walking pulse ox which showed that he required 3 L of oxygen with ambulation. He was discharged home on 09/07/2022. He is to follow-up with his primary care doctor within 1 to 2 weeks and counseled to come back to the hospital if his shortness of breath did not improve and worsen. Patient seen and examined prior to discharge. He felt much better and had no ac tive complaints. Review of systems otherwise negative. Labs and vitals reviewed. Medication reviewed and reconciled. Physical Exam Const alert, oriented x3 and no apparent distress General Appearance: cooperative, comfortable and well kempt Exam Limitations: no limitations HEENT normocephalic, head/scalp atraumatic, hearing grossly normal bilaterally and moist oral mucous membranes Mouth: oral and palatal mucosa normal Neck no lymphadenopathy, supple and no JVD Resp Resp Narrative: Mildly diminished breath sounds bibasally. No wheezes or crackles. On 2 L of oxygen by nasal cannula. GI normal to inspection, nondistended, normoactive bowel sounds, soft to palpation, non-tender and non-distended Extremity normal to inspection, full ROM and no clubbing, cyanosis or edema Skin no rashes or lesions noted and no wounds Neuro oriented x3, CN's II-XII intact bilaterally and moves all extremities Sensorium / Orientation: awake and alert Motor Exam: strength 5/5 throughout Weight / BMI Weight Weight: 186 lb 8.177 oz Body Mass Index (BMI) 25.2 ABG / Lab / Microbiology Data Result Diagrams: 09/07/22 06:56 09/07/22 06:56 Laboratory: Laboratory Results - last 24 hr 09/07/22 06:56: WBC 15.0 H, RBC 4.42 L, Hgb 12.6 L, Hct 37.6 L, MCV 85.1, MCH 28.5, MCHC 33.5, RDW Std Deviation 54.4 H, RDW Coeff of Min 17.5 H, Plt Count 162, MPV 11.0, Immature Gran % (Auto) 0.700, Neut % (Auto) 84.1 H, Lymph % (Auto) 9.9 L, Mcdonald % (Auto) 5.2, Eos % (Auto) 0.0, Baso % (Auto) 0.1, Absolute Neuts (auto) 12.6 H, Absolute Lymphs (auto) 1.48, Nucleated RBC % 0 09/07/22 06:56: Sodium 138, Potassium 4.1, Chloride 104, Carbon Dioxide 25.0, Anion Gap 9, BUN 20 H, Creatinine 0.68 L, Estim Creat Clear Calc 66.82, Est GFR (MDRD) Af Amer 146, Est GFR (MDRD) Non-Af 121, BUN/Creatinine Ratio 29.6 H, Glucose 135 H, Calcium 8.8, Total Bilirubin 0.30, AST 42 H, ALT 39, Alkaline Phosphatase 52, Total Protein 5.7 L, Albumin 2.3 L, Globulin 3.4, Albumin/Globulin Ratio 0.7 L Microbiology: Microbiology 09/06/22 16:30 Sputum, Expectorated/Coughed Gram Stain - Final 09/06/22 16:30 Sputum, Expectorated/Coughed Respiratory Culture - Preliminar y Appears to be normal respiratory yolis. Further studies to follow. 09/05/22 11:30 Nasal Secretion SARS-CoV-2 & FLU Antigen (Rapid) - Final SARS-CoV-2 (COVID 19) D/C Instructions Discharge Diet: Low fat / Low cholesterol Weight Bearing Status: Weight bearing as tolerated Call your doctor if you observe: Fever of 101 or Higher, Shortness of breath, Swelling in the ankles, Chest pain and Increased palpitations (irregular heartbeat) Meaningful Use Info Meaningful Use Diagnoses (Choose all that apply): None applicable Discharge Plan Admission Admit Date/Time: 09/05/22 14:54 Primary Reason for Your Visit: covid 19 infection Attending Provider: Nikki Rojas Primary Care Provider: Martin Ayala Consulting Providers: Cherri Morel ; Dwight Nava Instructions Patient Instructions: Coronavirus Disease 2019 (COVID-19): Overview Additional Instructions / Restrictions: use oxygen 2-4L for shortness of breath as needed Discharge Orders/Prescriptions Prescriptions: New dexamethasone 6 mg tablet 6 mg PO DAILY Qty: 8 0RF Continued carvedilol [Coreg] 25 MG tablet 37.5 mg PO BID amlodipine [Norvasc] 5 MG tablet 5 mg PO DAILY lisinopril [Zestril] 10 MG tablet 10 mg PO DAILY albuterol sulfate [Ventolin HFA] 1 INHALER inhaler 2 puff inhalation Q4H PRN (Reason: SHORTNESS OF BREATH ) guaifenesin [Chest Congestion Relief] 400 MG tablet 400 mg PO DAILY Spiriva with HandiHaler 1 PUFF inhaler 2 puff inhalation DAILY ABC Plus 1 EACH tablet 1 ea PO DAILY fish oil-dha-epa 1 EACH capsule 1,200 mg PO DAILY budesonide-formoterol [Symbicort] 1 INHALER inhaler 2 puff IH BID rosuvastatin 40 MG tablet 20 mg PO QHS cyanocobalamin (vitamin B-12) 1,000 MCG tablet 1,000 mcg PO DAILY omeprazole 20 MG capsule,delayed release(DR/EC) 20 mg PO DAILY cholecalciferol (vitamin D3) 2,000 UNIT capsule 2,000 unit PO DAILY albuterol sulfate 2.5 MG/3 ML solution for nebulization 2.5 mg inhalation Q6H PRN (Reason: COPD) alendronate 70 MG tablet 70 mg PO VILLANUEVA clopidogrel 75 MG tablet 75 mg PO DAILY Discontinued prednisone 10 mg tablet See Taper PO DAILY Taper: Prednisone Taper 60 mg WITH BREAKFAST for 3 Days and 0 Hour 50 mg WITH BREAKFAST for 3 Days and 0 Hour 40 mg WITH BREAKFAST for 3 Days and 0 Hour 30 mg WITH BREAKFAST for 3 Days and 0 Hour 20 mg WITH BREAKFAST for 3 Days and 0 Hour 10 mg WITH BREAKFAST for 3 Days and 0 Hour Rx Instructions: TAPER: 60 mg with breakfast for 3 Days; 50 mg with breakfast for 3 Days; 40 mg with breakfast for 3 Days; 30 mg with breakfast for 3 Days; 20 mg with breakfast for 3 Days; 10 mg with breakfast for 3 Days Referrals / Follow Up: Martin Ayala MD [Primary Care Provider] - Within 2 Weeks [facility] [STAFF PHYSICIAN] - Within 2 Weeks Disposition Disposition (needs filled in before D/C Order can be placed): Home, Self Care Charges/Coding Multi Select Codes Visit Charges Visit Charges: 37131 Disch Hosp
--- NOTE | 2022-09-07 11:23 | CPS ---
PATIENT FOUND ON 4 LPM POST AMBULATION.
== END 2022-09-07 12:36 | disposition home or self-care (01) | DRG 179 ==
LOC: ED 14:31 → PCU 15:02
PROVIDERS: Family Medicine; Physician Assistant; Admitting Provider Internal Medicine; Emergency Provider Emergency Medicine; PCP Family Medicine; Visit Provider Student in an Organized Health Care Education/Training Program
DX: U07.1 COVID-19 (principal); E78.5 Hyperlipidemia, unspecified; J43.9 Emphysema, unspecified; M06.9 Rheumatoid arthritis, unspecified; G47.33 Obstructive sleep apnea (adult) (pediatric); I10 Essential (primary) hypertension; I25.10 Atherosclerotic heart disease of native coronary artery without angina pectoris; R09.02 Hypoxemia; Z79.82 Long term (current) use of aspirin; Z79.02 Long term (current) use of antithrombotics/antiplatelets; Z79.83 Long term (current) use of bisphosphonates; Z79.52 Long term (current) use of systemic steroids; Z79.899 Other long term (current) drug therapy; Z87.891 Personal history of nicotine dependence; Z95.5 Presence of coronary angioplasty implant and graft; Z86.73 Personal history of transient ischemic attack (TIA), and cerebral infarction without residual deficits
CPT/HCPCS: 36415; 71046; 71275; 80048; 80053; 80076; 82550; 83605; 83615; 83880; 84145; 85025; 85379; 85384; 85610; 86140; 87070; 87205; 87428; 93005; 94003; 94640; 94660; 94668; 94762; 97802; 99252; 99285; J7030; J7050; Q9967; A4216; G0463; J0248; J1940

== ENCOUNTER → 2022-10-10 | Outpatient (CLI) | payer MEDICARE, SELFPAY ==
[2022-10-10 15:43] LABS: Erythrocyte Sedimentation Rate 15 mm/hr (0-20)
[2022-10-10 16:02] LABS: ALB/GLOB Ratio 0.6 RATIO (0.9-2.4); AST(SGOT) 16 U/L (15-37); Alanine Aminotransfer ALT/SGPT 36 U/L (16-61); Albumin, Serum 2.6 g/dL (3.2-5.0); Alkaline Phosphatase 73 U/L (45-117); BUN 10 mg/dL (7-18); BUN/Creat Ratio 12.7 RATIO (10-20); Calcium,Total 9.1 mg/dL (8.5-10.1); Chloride 107 mmol/L (98-107); Creatinine, Serum 0.79 mg/dL (0.70-1.30); EST Glomerular Filtration Rate 101 mL/min (>60); Est Glom Filt Rate - Afr Amer 123 mL/min (>60); Glucose 114 mg/dL (74-106); Magnesium 1.7 mg/dL (1.6-2.6); Potassium 3.6 mmol/L (3.5-5.1); Protein, Total 6.6 g/dL (6.4-8.2); Sodium Level 138 mmol/L (136-145)
[2022-10-10 16:03] LABS: Absolute Lymphocyte Count 1.87 X10^3/uL (0.83-4.51); Absolute Neutrophil Count 11.3 X10^3/uL (2.0-7.7); Anion Gap 5 (5-15); Basophil# 0.07 X10^3/uL; Basophil% 0.5 % (0-1); Eosinophils% 0.7 % (0-5); Hematocrit 41.2 % (40-54); Hemoglobin 13.5 g/dL (13.0-16.5); Lymphocyte # 1.87 X10^3/ul (0.83-4.51); Lymphocyte % 12.6 % (19-41); Mean Corp Hgb Conc 32.8 g/dL (32-36); Mean Corpuscular Hgb 29.4 pg (27.0-32.0); Mean Corpuscular Volume 89.8 fL (80-94); Mean Platelet Vol. 9.3 fl (6.2-12.0); Monocyte# 1.26 X10^3/uL; Monocyte% 8.5 % (0-10); NRBC Flagged by Analyzer 0 % (0-5); Neutrophil # 11.26 X10^3/uL (2.7-7.7); Neutrophil % 75.4 % (47-70); Platelet Count 245 K/mm3 (150-450); RBC Distribution Width CV 17.7 % (11.6-14.6); RBC Distribution Width SD 57.1 fl (35.1-43.9); Red Blood Count 4.59 M/mm3 (4.6-6.2); Thyroid Stim Hormone (TSH) 2.58 uIU/mL (0.358-3.74); White Blood Count 14.9 K/mm3 (4.4-11.0)
== END | disposition home or self-care (01) ==
LOC: MFPLAB 15:03
PROVIDERS: PCP Family Medicine; Visit Provider Family Medicine
DX: R41.89 Other symptoms and signs involving cognitive functions and awareness (principal); M35.3 Polymyalgia rheumatica; R29.898 Other symptoms and signs involving the musculoskeletal system
CPT/HCPCS: 36415; 80053; 82140; 83735; 84443; 85025; 85652; 86140

== ENCOUNTER → 2025-03-24 | Outpatient (CLI) | payer MEDICARE, SELFPAY ==
--- NOTE | 2025-03-24 08:43 | US_ITS ---
EXAM: DIAG MAMM W/CAD, BILAT; BREAST LIMITED UNILATERAL 03/24/2025 CLINICAL HISTORY: M, Age 79 y/o , CHEST MASS; LUMP TECHNIQUE: Procedure Code: [id number]; USBRSTLIMIT Modality: MG; US Procedure: DIAG MAMM W/CAD, BILAT; BREAST LIMITED UNILATERAL. COMPARISON: No prior studies FINDINGS: TISSUE DENSITY: There are scattered areas of fibroglandular density. Bilateral Breast Mammographic Findings: No significant masses, calcifications or other abnormalities are identified. Dense retroareolar tissue or prominent in the right breast in the left consistent with gynecomastia. No suspicious solid lesion or architectural distortion. However, because the patient complains of a palpable right breast lump, further evaluation of the right breast with ultrasound was also performed. Ultrasound: Focused ultrasound evaluation of the upper inner quadrant of the right breast was performed and shows a simple well-defined anechoic subcutaneous cyst measuring 0.6 x 0.6 x 0.5 cm. There is no suspicious shadowing solid lesion architectural distortion or clustered shadowing calcifications US/Breast Limited Unilateral IMPRESSION: No suspicious sonographic or mammographic findings, there is a simple right sherry ast cyst that corresponds to the palpable lump. OVERALL FINAL ASSESSMENT BI-RADS 2: BENIGN RECOMMENDATION: OTHER Additional Recommendation no specific follow-up since patient is male, if there is a change in presentation, he should return for additional evaluation A letter with findings and recommendations will be mailed to the patient. Reading Location: [id number]
--- NOTE | 2025-03-24 09:00 | BI_ITS ---
EXAM: DIAG MAMM W/CAD, BILAT; BREAST LIMITED UNILATERAL 03/24/2025 CLINICAL HISTORY: M, Age 79 y/o , CHEST MASS; LUMP TECHNIQUE: Procedure Code: [id number]; USBRSTLIMIT Modality: MG; US Procedure: DIAG MAMM W/CAD, BILAT; BREAST LIMITED UNILATERAL. COMPARISON: No prior studies FINDINGS: TISSUE DENSITY: There are scattered areas of fibroglandular density. Bilateral Breast Mammographic Findings: No significant masses, calcifications or other abnormalities are identified. Dense retroareolar tissue or prominent in the right breast in the left consistent with gynecomastia. No suspicious solid lesion or architectural distortion. However, because the patient complains of a palpable right breast lump, further evaluation of the right breast with ultrasound was also performed. Ultrasound: Focused ultrasound evaluation of the upper inner quadrant of the right breast was performed and shows a simple well-defined anechoic subcutaneous cyst measuring 0.6 x 0.6 x 0.5 cm. There is no suspicious shadowing solid lesion architectural distortion or clustered shadowing calcifications BI/DIAG MAMM W/CAD, BILAT IMPRESSION: No suspicious sonographic or mammographic findings, there is a simple right sherry ast cyst that corresponds to the palpable lump. OVERALL FINAL ASSESSMENT BI-RADS 2: BENIGN RECOMMENDATION: OTHER Additional Recommendation no specific follow-up since patient is male, if there is a change in presentation, he should return for additional evaluation A letter with findings and recommendations will be mailed to the patient. Reading Location: [id number]
== END | disposition home or self-care (01) ==
PROVIDERS: PCP Family Medicine; Referring Provider Family Medicine; Visit Provider Family Medicine
DX: N60.01 Solitary cyst of right breast (principal)
CPT/HCPCS: 76642; 77062; 77066; G0279

== ENCOUNTER → 2025-05-27 | Outpatient (CLI) | payer MEDICARE, SELFPAY ==
[2025-05-27 18:01] LABS: Hematocrit 45.9 % (40-54); Hemoglobin 15.0 g/dL (13.0-16.5); Immature Granulocytes Count 0.050 X10^3/uL (0.0-0.0); Mean Corp Hgb Conc 32.7 g/dL (32-36); Mean Corpuscular Volume 93.9 fL (80-94); Mean Platelet Vol. 10.3 fl (6.2-12.0); NRBC Flagged by Analyzer 0 % (0-5); Platelet Count 190 K/mm3 (150-450); RBC Distribution Width CV 15.2 % (11.6-14.6); RBC Distribution Width SD 51.1 fl (35.1-43.9); Red Blood Count 4.89 M/mm3 (4.6-6.2); White Blood Count 11.1 K/mm3 (4.4-11.0)
[2025-05-27 18:09] LABS: AST(SGOT) 36 U/L (<=37); Alanine Aminotransfer ALT/SGPT 41 U/L (<=46); Albumin, Serum 3.7 g/dL (3.4-4.8); Alkaline Phosphatase 79 U/L (40-129); Anion Gap 9 (5-15); BUN 7 mg/dL (4-19); BUN/Creat Ratio 9.3 RATIO (10-20); Calcium,Total 9.6 mg/dL (7.6-11.0); Carbon Dioxide 26.2 mmol/L (21.0-32.0); Chloride 108 mmol/L (98-108); Globulin 2.5 g/dL (2.2-4.2); Glucose 86 mg/dL (70-99); Potassium 3.8 mmol/L (3.3-5.1)
[2025-05-27 18:36] LABS: CRP < 3.00 mg/L (0.0-3.0)
== END | disposition home or self-care (01) ==
LOC: MTLAB 14:50
PROVIDERS: PCP Family Medicine; Referring Provider Family Medicine; Visit Provider Family Medicine
DX: R53.83 Other fatigue (principal); R63.4 Abnormal weight loss; M35.3 Polymyalgia rheumatica
CPT/HCPCS: 36415; 80053; 84443; 85025; 85652; 86140